=== PATIENT | male | born 1975 | race Caucasian/White ===

== ENCOUNTER 2017-01-24 17:08 | Inpatient (IN) | payer OTHER ==
[~2017-01-24] VITALS: Ht 180.3 cm; Wt 74.4 kg
[~2017-01-24 17:08] MED LIST: LSN5 PO; ZCR40 PO
[2017-01-24] MEDS ORDERED: ONDANSETRON INJ 2 MG/ML 2 ML VIAL IV STA (17:35)
[2017-01-24] MEDS ORDERED: SODIUM CHLORIDE 0.9% 1000ML 2,000 ML IV STA (17:35)
[2017-01-24] MEDS ORDERED: ERGO500011 PO (17:51)
--- NOTE | 2017-01-24 17:53 | EMERGENCY ROOM VISIT NOTE ---
History Report prepared by Jadeibdian: Tiffany Zavala Under the Supervision of: Rica GarciaO. First contact with patient: 17:18 Chief Complaint: VOMITING Stated Complaint: VOMITTING Nursing Triage Summary: vomiting started this am approx 0300. "many emesis" History of Present Illness The patient is a 41 year old male who presents to the Emergency Room with complaints of persistent vomiting that started around 1000 this morning. He admits to some abdominal discomfort from the vomiting but denies any diarrhea. He states he is still nauseous here in the ED and notes he vomited while in triage. He is a type 1 diabetic and has an Insulin pump in place. He does admit to some recent increased thirst but notes he is urinating normally. He admits to the chills but denies any fevers or cough or cold symptoms. The patient admits to a current headache, but states headaches are "common" for him. Source of History: patient Onset: 1000 this morning Position: other (global) Timing: other (persistent) Associated Symptoms: + chills, + headache, + abdominal pain, No fevers, No cough (cough or cold symptoms), No diarrhea Review of Systems See HPI for pertinent positives & negatives. A total of 10 systems reviewed and were otherwise negative. Past Medical & Surgical Medical Problems: (1) DM type 1 (diabetes mellitus, type 1) (2) Dyslipidemia (3) History of cochlear implant (4) HTN (hypertension) (5) Nausea & vomiting Family History FHx: Gibson's chorea FATHER Social History Smoking Status: Former Smoker Alcohol Use: none Drug Use: none Marital Status: in relationship Housing Status: lives with significant other Occupation Status: unemployed Current/Historical Medications Scheduled Atorvastatin (Atorvastatin Calcium), 40 MG PO DAILY Ergocalciferol (Vitamin D 05539 Unit), 50,000 UNITS PO WK Insulin Aspart (novoLOG INSULIN PUMP ), 1 EA N/A UD Lisinopril (Lisinopril), 20 MG PO DAILY Allergies Coded Allergies: No Known Allergies (Verified , NONE, 06/01/16) Physical Exam Vital Signs Date Time Temp Pulse Resp B/P (MAP) Pulse Ox O2 Delivery O2 Flow Rate FiO2 01/24/17 21:46 157/88 01/24/17 21:20 129 18 95 01/24/17 21:13 126 6/10/17 21:03 179/107 01/24/17 20:20 115 21 97 01/24/17 19:20 103 20 99 01/24/17 19:19 37.7 103 15 161/98 99 Room Air 01/24/17 18:23 97 14 151/100 97 Room Air 01/24/17 17:33 102 01/24/17 17:11 36.9 120 20 184/105 97 Room Air Physical Exam GENERAL: Patient is awake, alert, in no acute distress, patient is resting comfortably and showing no signs of anxiety EYES: The conjunctivae are clear. The pupils are round and reactive. EARS, NOSE, MOUTH AND THROAT: The nose is without any evidence of any deformity. Mucous membranes are dry, tongue is midline NECK: The neck is nontender and supple. RESPIRATORY: Normal respiratory effort is noted there is no evidence of wheezing rhonchi or rales CARDIOVASCULAR: Heart sounds are tachycardic but regular. No definite murmur appreciated. GASTROINTESTINAL: The abdomen is soft. Bowel sounds are present in all quadrants. Abdomen is nontender MUSCULOSKELETAL/EXTREMITIES: There is no evidence of gross deformity full range of motion is noted in the hips and shoulders SKIN: There is no obvious evidence of any rash. There are no petechiae, pallor or cyanosis noted. NEUROLOGIC: Patient is awake alert and oriented x3 strength is symmetric patellar reflexes are 2+ bilaterally Medical Decision & Procedures ER Provider Diagnostic Interpretation: X-ray results as stated below per interpretation by me and the radiologist. PA CHEST RADIOGRAPH AND UPRIGHT AND SUPINE AP RADIOGRAPHS OF THE ABDOMEN CLINICAL HISTORY: Abdominal pain. COMPARISON STUDY: CT of the abdomen and pelvis August 07, 2015 and chest radiograph June 01, 2016. FINDINGS: Lungs are clear. There is no pneumothorax or pleural effusion. Pulmonary vascularity is normal. Cardiac size is normal. Mediastinal contours are unremarkable. There is no free air. Bowel gas pattern is normal. A left pelvic calcification reflects a phlebolith. There is a moderate amount of stool within the colon. IMPRESSION: 1. No free air or evidence of bowel obstruction. 2. Moderate amount of stool within the colon. 3. No acute cardiopulmonary findings. Electronically signed by: Mohinder Donovan M.D. 01/24/2017 7:13 PM Laboratory Results Test 01/24/17 00:00 01/24/17 18:00 01/24/17 18:43 Urine Color YELLOW Urine Appearance CLEAR (CLEAR) Urine pH 5.5 (4.5-7.5) Urine Specific [place] 1.028 (1.000-1.030) Urine Protein 2+ (NEG) Urine Glucose (UA) 3+ (NEG) Urine Ketones 3+ (NEG) Urine Occult Blood TRACE (NEG) Urine Nitrite NEG (NEG) Urine Bilirubin NEG (NEG) Urine Urobilinogen NEG (NEG) Urine Leukocyte Esterase NEG (NEG) Urine WBC (Auto) 1-5 /hpf (0-5) Urine RBC (Auto) 0-4 /hpf (0-4) Urine Hyaline Casts (Auto) 1-5 /lpf (0-5) Urine Epithelial Cells (Auto) 5-10 /lpf (0-5) Urine Bacteria (Auto) NEG (NEG) Immature Granulocyte % (Auto) 0.2 % White Blood Count 14.43 K/uL (4.8-10.8) Red Blood Count 4.69 M/uL (4.7-6.1) Hemoglobin 15.4 g/dL (14.0-18.0) Hematocrit 42.5 % (42-52) Mean Corpuscular Volume 90.6 fL (80-100) Mean Corpuscular Hemoglobin 32.8 pg (25-34) Mean Corpuscular Hemoglobin Concent 36.2 g/dl (32-36) Platelet Count 289 K/uL (130-400) Mean Platelet Volume 9.6 fL (7.4-10.4) Neutrophils (%) (Auto) 93.6 % Lymphocytes (%) (Auto) 3.9 % Monocytes (%) (Auto) 2.1 % Eosinophils (%) (Auto) 0.1 % Basophils (%) (Auto) 0.1 % Neutrophils # (Auto) 13.51 K/uL (1.4-6.5) Lymphocytes # (Auto) 0.56 K/uL (1.2-3.4) Monocytes # (Auto) 0.31 K/uL (0.11-0.59) Eosinophils # (Auto) 0.01 K/uL (0-0.5) Basophils # (Auto) 0.01 K/uL (0-0.2) Immature Granulocyte # (Auto) 0.03 K/uL (0.00-0.02) Total Bilirubin 0.9 mg/dl (0.2-1) Direct Bilirubin 0.2 mg/dl (0-0.2) Aspartate Amino Transf (AST/SGOT) 24 U/L (15-37) Alanine Aminotransferase (ALT/SGPT) 40 U/L (12-78) Alkaline Phosphatase 57 U/L (45-117) Creatine Kinase MB 4.3 ng/ml (0.5-3.6) Creatine Kinase MB Ratio 1.4 (0-3.0) Troponin I < 0.015 ng/ml (0-0.045) Total Protein 7.9 gm/dl (6.4-8.2) Albumin 4.2 gm/dl (3.4-5.0) Lipase 92 U/L (73-393) Venous Blood pH 7.42 (7.36-7.41) Venous Blood Partial Pressure CO2 41 mmHg (38.0-50.0) Venous Blood Partial Pressure O2 29 mmHg Venous Blood HCO3 26 mmol/L Venous Blood Oxygen Saturation 64.3 % Venous Blood Base Excess 1.4 mmol/L Laboratory results per my review. Medications Administered Medications (Trade) Dose Ordered Sig/Soha Route Start Time Stop Time Status Last Admin Dose Admin Ondansetron HCl (Zofran Inj) 4 mg NOW STAT IV 01/24/17 17:35 01/24/17 17:37 DC 01/24/17 18:22 4 MG Sodium Chloride 2,000 ml @ 999 mls/hr Q2H1M STAT IV 01/24/17 17:35 01/24/17 19:35 DC 01/24/17 18:22 999 MLS/HR Sodium Chloride 1,000 ml @ 999 mls/hr Q1H1M STAT IV 01/24/17 19:32 01/24/17 20:32 DC 01/24/17 21:42 999 MLS/HR Sodium Chloride 1,000 ml @ 999 mls/hr Q1H1M STAT IV 01/24/17 21:04 01/24/17 22:04 DC 01/24/17 21:42 999 MLS/HR ECG Indication: vomiting Rate (beats per minute): 103 Rhythm: sinus tachycardia Findings: no ectopy, other (no acute ST segments) Change: no significant change (No significant change when compared to June 01, 2016) ED Course 1734: The patient was evaluated in room B5. A complete history and physical examination were performed. 1735: NSS 2000 ml @ 999 mls/hr IV, Zofran 4 mg IV. 1931: NSS 1000 ml @ 999 mls/hr IV. 1944: I reevaluated the patient. He is still a little nauseous but has not vomited since arrival. 2019: I reevaluated the patient. He is feeling a little better. 2049: I reevaluated the patient. He is still nauseous but has been able to drink some water. 2103: NSS 1000 ml @ 999 mls/hr IV. 2124: I reevaluated the patient. He is not feeling much better. I discussed my recommendation he remain in the hospital for further evaluation and management and he verbalized complete understanding and agreement. 2133: I discussed the patients case with Russ Guan. The patient will be further evaluated. Medical Decision Medication Reconciliation: I attest that I have personally reviewed the patient' s current medications list. Blood pressure screening: Patient was found to have an elevated blood pressure and was referred to their primary doctor for recheck and further treatment. Prior records/ancillary studies reviewed and summarized above. Nursing notes reviewed. The patient's history was concerning for weakness. Differential diagnosis: Etiologies such as metabolic, infection, hypo/hyperglycemia, electrolyte abnormalities, cardiac sources, intracerebral event, toxicologic, neurologic, as well as others were entertained. The patient is a 41-year-old male who presented to the emergency department for an evaluation of nausea vomiting. The patient has a history of diabetes and has had similar symptoms in the past. He's had problems with DKA in the past. The patient was treated with IV fluids and IV antiemetics. His condition continued to improve however he continued to have nausea and vomiting on reevaluation. The patient did not have significant anion gap. He was not acidotic. Because of ongoing symptoms I discussed his case with the on-call Russ hospitalist. They have agreed to evaluate the patient in the emergency department for further management and disposition. Consults Time Called: 2129 Consulting Physician: Russ Guan Returned Call: 2133 I discussed the patients case with Russ Guan. The patient will be further evaluated. Impression Primary Impression: Nausea Additional Impressions: Vomiting Dehydration Hyperglycemia Scribe Attestation The scribe's documentation has been prepared under my direction and personally reviewed by me in its entirety. I confirm that the note above accurately reflects all work, treatment, procedures, and medical decision making performed by me. Departure Information Dispostion Being Evaluated By Hospitalist Referrals Lilly Estrada M.D. (PCP) Patient Instructions My [facility] Problem Qualifiers
[2017-01-24 18:22] LABS: BASO % 0.1 %; BASO ABS # 0.01 K/uL (0-0.2); COMPLETE YES; EOS % 0.1 %; HEMATOCRIT 42.5 % (42-52); IG% 0.2 %; LYMPH % 3.9 %; LYMPH ABS # 0.56 K/uL (1.2-3.4); MEAN CELL VOLUME 90.6 fL (80-100); MEAN CORPUSCULAR HEMOGLOBIN 32.8 pg (25-34); MEAN CORPUSCULAR HGB CONC 36.2 g/dl (32-36); MEAN PLATELET VOLUME 9.6 fL (7.4-10.4); MONO % 2.1 %; NEUT % 93.6 %; PLATELET COUNT 289 K/uL (130-400); RED BLOOD COUNT 4.69 M/uL (4.7-6.1); WHITE BLOOD COUNT 14.43 K/uL (4.8-10.8)
[2017-01-24 18:41] LABS: ALT/SGPT 40 U/L (12-78); AST/SGOT 24 U/L (15-37); BLOOD UREA NITROGEN 20 mg/dl (7-18); BUN/CREATININE RATIO 16.6 (10-20); CALCIUM 9.4 mg/dl (8.5-10.1); CARBON DIOXIDE 26 mmol/L (21-32); CHLORIDE 103 mmol/L (98-107); GLUCOSE 271 mg/dl (70-99); MAGNESIUM 1.9 mg/dl (1.8-2.4); POTASSIUM 4.4 mmol/L (3.5-5.1); SODIUM 141 mmol/L (136-145)
[2017-01-24 18:43] LABS: ALKALINE PHOSPHATASE 57 U/L (45-117); BETA-HYDROXYBUTYRATE 15.05 mg/dL (0.2-2.81); CKMB/CK RATIO 1.4 (0-3.0)
[2017-01-24 18:54] LABS: VEN BLD GAS O2 SATURATION 64.3 %; VEN BLOOD GAS BASE EXCESS 1.4 mmol/L
--- NOTE | 2017-01-24 19:14 | DIAGNOSTIC IMAGING REPORT ---
PA CHEST RADIOGRAPH AND UPRIGHT AND SUPINE AP RADIOGRAPHS OF THE ABDOMEN CLINICAL HISTORY: Abdominal pain. COMPARISON STUDY: CT of the abdomen and pelvis August 07, 2015 and chest radiograph June 01, 2016. FINDINGS: Lungs are clear. There is no pneumothorax or pleural effusion. Pulmonary vascularity is normal. Cardiac size is normal. Mediastinal contours are unremarkable. There is no free air. Bowel gas pattern is normal. A left pelvic calcification reflects a phlebolith. There is a moderate amount of stool within the colon. IMPRESSION: 1. No free air or evidence of bowel obstruction. 2. Moderate amount of stool within the colon. 3. No acute cardiopulmonary findings. Electronically signed by: Mohinder Donovan M.D. 01/24/2017 7:13 PM Dictated Date/Time: 01/24/2017 7:11 PM
[2017-01-24] MEDS ORDERED: SODIUM CHLORIDE 0.9% 1000ML 1,000 ML IV STA ×2 (19:32→21:04)
[2017-01-24 20:29] LABS: URINE APPEARANCE CLEAR (CLEAR); URINE BILIRUBIN NEG (NEG); URINE COLOR YELLOW; URINE NITRITE NEG (NEG); URINE PH 5.5 (4.5-7.5); URINE SPECIFIC GRAVITY 1.028 (1.000-1.030); UROBILINOGEN NEG (NEG)
[2017-01-24 20:30] LABS: MANUAL MICROSCOPIC REQUIRED? NO; REVIEW REQ? NO
[2017-01-24] MEDS ORDERED: INSULIN IV INFUSION PROTOCOL STA (21:46)
--- NOTE | 2017-01-24 21:54 | History and Physical ---
History & Physical Date & Time of Service: Jan 24, 2017 at 21:54 Chief Complaint: Vomitting Primary Care Physician: Lilly Estrada M.D. History of Present Illness Source: patient This is a 41 yo M with medical hx of Type 1 DM on insulin pump , HTN , hyperlipidemia , Vit D deficiency presented to ED with complain intractable nausea /vomiting started form 10am this morning , pt mentions he was feeling OK yesterday , this AM his insulin pump reading shows BSG of 66 he had breakfast , few minutes later developed nausea and vomited his meals had ongoing vomiting multiple times through out the day complains of pain on lower abdomen and epigastric area worsened with vomiting mentions of having coughing episode with vomiting no fever or chills , no sick contact denies of any Chest pain or SOB had bowel movement this AM -was normal no concern for insulin pump malfunction in the ED for was found to be tachycardic , febrile WBC 14 K BSG > 260 , elevated beta hydroxybutyrate level mild elevation of anion gap , normal H co3 level of 26 Past Medical/Surgical History Medical Problems: (1) DM type 1 (diabetes mellitus, type 1) Status: Chronic (2) Dyslipidemia Status: Chronic (3) History of cochlear implant Status: Chronic (4) HTN (hypertension) Status: Chronic Family History FHx: Hector's chorea FATHER Social History Smoking Status: Former Smoker Drug Use: none Marital Status: in relationship Occupational Status: unemployed Immunizations History of Influenza Vaccine: Yes Influenza Vaccine Date: May 08, 2015 History of Tetanus Vaccine?: Yes Tetanus Immunization Date: Aug 28, 2009 History of Pneumococcal: Yes Pneumococcal Date: Jan 25, 2015 History of Hepatitis B Vaccine: Yes Hepatitis Immunization Date: Jun 06, 2014 Multi-Drug Resistant Organisms History of MDRO: No Allergies Coded Allergies: No Known Allergies (Verified , NONE, 06/01/16) Home Medications Scheduled Atorvastatin (Atorvastatin Calcium), 40 MG PO DAILY Ergocalciferol (Vitamin D 85789 Unit), 50,000 UNITS PO WK Insulin Aspart (novoLOG INSULIN PUMP ), 1 EA N/A UD Lisinopril (Lisinopril), 20 MG PO DAILY Review of Systems Constitutional: + weakness, + fatigue Respiratory: + cough (with vomiting ) Cardiovascular: No chest pain, No orthopnea, No PND, No edema, No claudication , No palpitations, No problem reported Abdomen: + pain (abdominal pain ), + nausea, + vomiting Musculoskeletal: No joint pain, No muscle pain, No swelling, No calf pain, No problem reported Genitourinary - Male: No hematuria, No dysuria, No urinary frequency, No urinary urgency, No urinary hesitancy, No urinary retention, No urinary incontinence, No penile discharge, No lesions, No impotence, No problem reported Neurologic: + weakness Endocrine: + fatigue, + excessive thirst Physical Exam Vital Signs Date Time Temp Pulse Resp B/P (MAP) Pulse Ox O2 Delivery O2 Flow Rate FiO2 01/24/17 21:13 126 01/24/17 19:19 37.7 103 15 161/98 99 Room Air 01/24/17 18:23 97 14 151/100 97 Room Air 01/24/17 17:33 102 01/24/17 17:11 36.9 120 20 184/105 97 Room Air General Appearance: no apparent distress Head: normocephalic, atraumatic Eyes: sclerae normal Respiratory/Chest: lungs clear, normal breath sounds, no respiratory distress Cardiovascular: regular rate, rhythm Abdomen/GI: normal bowel sounds, soft, + pertinent finding (epigastric tenderness ) Extremities/Musculoskelatal: no calf tenderness, no pedal edema Neurologic/Psych: alert, normal mood/affect, oriented x 3 Skin: normal color, warm/dry, no rash Lymphatic: no adenopathy Diagnostics Laboratory Results Results Past 24 Hours Test 01/24/17 00:00 01/24/17 17:31 01/24/17 18:00 01/24/17 18:43 Range/Units Urine Color YELLOW Urine Appearance CLEAR CLEAR Urine pH 5.5 4.5-7.5 Urine Specific [place] 1.028 1.000-1.030 Urine Protein 2+ NEG Urine Glucose (UA) 3+ NEG Urine Ketones 3+ NEG Urine Occult Blood TRACE NEG Urine Nitrite NEG NEG Urine Bilirubin NEG NEG Urine Urobilinogen NEG NEG Urine Leukocyte Esterase NEG NEG Urine WBC (Auto) 1-5 0-5 /hpf Urine RBC (Auto) 0-4 0-4 /hpf Urine Hyaline Casts (Auto) 1-5 0-5 /lpf Urine Epithelial Cells (Auto) 5-10 0-5 /lpf Urine Bacteria (Auto) NEG NEG Bedside Glucose 260 70-99 mg/dl White Blood Count 14.43 4.8-10.8 K/uL Red Blood Count 4.69 4.7-6.1 M/uL Hemoglobin 15.4 14.0-18.0 g/dL Hematocrit 42.5 42-52 % Mean Corpuscular Volume 90.6 80-100 fL Mean Corpuscular Hemoglobin 32.8 25-34 pg Mean Corpuscular Hemoglobin Concent 36.2 32-36 g/dl Platelet Count 289 130-400 K/uL Mean Platelet Volume 9.6 7.4-10.4 fL Neutrophils (%) (Auto) 93.6 % Lymphocytes (%) (Auto) 3.9 % Monocytes (%) (Auto) 2.1 % Eosinophils (%) (Auto) 0.1 % Basophils (%) (Auto) 0.1 % Neutrophils # (Auto) 13.51 1.4-6.5 K/uL Lymphocytes # (Auto) 0.56 1.2-3.4 K/uL Monocytes # (Auto) 0.31 0.11-0.59 K/uL Eosinophils # (Auto) 0.01 0-0.5 K/uL Basophils # (Auto) 0.01 0-0.2 K/uL RDW Standard Deviation 44.0 36.4-46.3 fL RDW Coefficient of Variation 13.5 11.5-14.5 % Immature Granulocyte % (Auto) 0.2 % Immature Granulocyte # (Auto) 0.03 0.00-0.02 K/uL Sodium Level 141 136-145 mmol/L Potassium Level 4.4 3.5-5.1 mmol/L Chloride Level 103 98-107 mmol/L Carbon Dioxide Level 26 21-32 mmol/L Anion Gap 12.0 3-11 mmol/L Blood Urea Nitrogen 20 7-18 mg/dl Creatinine 1.20 0.60-1.40 mg/dl Est Creatinine Clear Calc Drug Dose 76.9 ml/min Estimated GFR () 87.8 Estimated GFR (Non- 75.7 BUN/Creatinine Ratio 16.6 10-20 Random Glucose 271 70-99 mg/dl Calcium Level 9.4 8.5-10.1 mg/dl Magnesium Level 1.9 1.8-2.4 mg/dl Total Bilirubin 0.9 0.2-1 mg/dl Direct Bilirubin 0.2 0-0.2 mg/dl Aspartate Amino Transf (AST/SGOT) 24 15-37 U/L Alanine Aminotransferase (ALT/SGPT) 40 12-78 U/L Alkaline Phosphatase 57 45-117 U/L Total Creatine Kinase 316 39-308 U/L Creatine Kinase MB 4.3 0.5-3.6 ng/ml Creatine Kinase MB Ratio 1.4 0-3.0 Troponin I < 0.015 0-0.045 ng/ml Total Protein 7.9 6.4-8.2 gm/dl Albumin 4.2 3.4-5.0 gm/dl Lipase 92 73-393 U/L Beta-Hydroxybutyric Acid 15.05 0.2-2.81 mg/dL Venous Blood pH 7.42 7.36-7.41 Venous Blood Partial Pressure CO2 41 38.0-50.0 mmHg Venous Blood Partial Pressure O2 29 mmHg Venous Blood HCO3 26 mmol/L Venous Blood Oxygen Saturation 64.3 % Venous Blood Base Excess 1.4 mmol/L Test 01/24/17 21:48 Range/Units Microbiology Results 01/24/17 Blood Culture, Diana Batch Pending 01/24/17 Blood Culture, Diana Batch Pending Diagnostic Radiology PA CHEST RADIOGRAPH AND UPRIGHT AND SUPINE AP RADIOGRAPHS OF THE ABDOMEN CLINICAL HISTORY: Abdominal pain. COMPARISON STUDY: CT of the abdomen and pelvis August 07, 2015 and chest radiograph June 01, 2016. FINDINGS: Lungs are clear. There is no pneumothorax or pleural effusion. Pulmonary vascularity is normal. Cardiac size is normal. Mediastinal contours are unremarkable. There is no free air. Bowel gas pattern is normal. A left pelvic calcification reflects a phlebolith. There is a moderate amount of stool within the colon. IMPRESSION: 1. No free air or evidence of bowel obstruction. 2. Moderate amount of stool within the colon. 3. No acute cardiopulmonary findings. Impression Assessment and Plan TYPE 1 DM /HYPERGLYCEMIA : presented with intractable nausea /vomiting , no evidence of insulin pump malfunction will start pt in IV insulin gtt pt is asked to hold insulin pump while in hospital IV fluids follow beta hydroxybutyrate level q 8hrs -till normalizes follows with Endocrinology Dr Reina last Hb A1 C 7.8 on 12/29/16 NAUSEA /VOMITING /ABDOMINAL PAIN possible due to above Xray of abdomen no acute finding ordered for IV fluids , hyperglycemia management as above clear liquid diet advance to Type 1 diabetic diet as tolerated ROBINA : Cr elevated 1.2 ( last cr 0.9 on 12/29/16 ) due to GI loss IVF fluid hold ZACHARY follow PRP TACHYCARDIAC : sinus tach due to dehydration IVF monitor in tele MILD LEUKOCYTOSIS : WBC 14 k with fever r/o infection causing hyperglycemia blood and urine culture ordered Cxray no evidence of infection HTN : BP stable will hold lisinopril due to dehydration , ROBINA HYPERLIPIDEMIA : hold statin due to mild elevation of CPK pt denies of any muscle aches or pain FULL CODE DVT PROPHYLAXIS low risk scd and teds ambulate DISPOSITION : Discharge home when medically stable medicine follow up with Dr Lilly Estrada Endocrinology follow up with Dr Reina Level of Care Telemetry Resuscitation Status FULL RESUSCITATION VTE Prophylaxis VTE Risk Assessment Done? Y/N: Yes Risk Level: Low Given or contraindicated: T.EDevang Stockings, SCD's Additional Copies To Lilly Estrada M.D. Kaviani, [place], M.D.
[2017-01-24] MEDS ORDERED: POLYETHYLENE (MIRALAX) 17 GM PACK PO PRN (22:00)
[2017-01-24] MEDS ORDERED: DKA GOAL RANGE 150-250 mg/dl 1 EA ONE (22:00)
[2017-01-24] MEDS ORDERED: ONDANSETRON INJ 2 MG/ML 2 ML VIAL IV PRN (22:00)
[2017-01-24] MEDS ORDERED: ZOLPIDEM TARTRATE 5 MG TAB PO PRN (22:00)
[2017-01-24] MEDS ORDERED: ACETAMINOPHEN 325 MG TAB PO PRN (22:00)
[2017-01-24] MEDS ORDERED: DC ALL PREVIOUSLY ORDERED DIABETES MEDS ONE (22:00)
[2017-01-24] MEDS ORDERED: ALUMINUM/MAGNESIUM/SIMETH (MAALOX MAX) 30 ML UDC PO PRN (22:00)
[2017-01-24] MEDS ORDERED: SEVERE STRESS LEVEL ONE (22:00)
[2017-01-24] MEDS ORDERED: PHARMACY GLYCEMIC MGMT CONSULT PRN (23:45)
[2017-01-25] VITALS (7 sets, daily range): BP systolic 141–169; BP diastolic 80–99; PULSE 72–109; TEMP 36.6–37.2; O2SAT 96–98; Ht 180.3 cm; Wt 74.4 kg
[2017-01-25] MEDS ORDERED: INSULIN HUMAN REGULAR IV BOLUS 2.5 UNIT in SYRINGE 0 ML IV SCH
[2017-01-25] MEDS: INSULIN REGULAR 250 UNITS in SODIUM CHLORIDE 0.9% 250ML 250 ML IV SCH ×7 (00:20→18:13)
[2017-01-25] MEDS: SODIUM CHLORIDE 0.9% 1000ML 1,000 ML IV SCH ×3 (01:37→13:19)
[2017-01-25 07:06] LABS: HEMATOCRIT 36.5 % (42-52); MEAN CELL VOLUME 90.6 fL (80-100); MEAN CORPUSCULAR HGB CONC 34.2 g/dl (32-36); MEAN PLATELET VOLUME 9.2 fL (7.4-10.4); PLATELET COUNT 261 K/uL (130-400); RED BLOOD COUNT 4.03 M/uL (4.7-6.1); WHITE BLOOD COUNT 11.02 K/uL (4.8-10.8)
[2017-01-25 07:33] LABS: BETA-HYDROXYBUTYRATE 3.58 mg/dL (0.2-2.81); BUN/CREATININE RATIO 18.8 (10-20); CALCIUM 8.5 mg/dl (8.5-10.1); CHOLESTEROL/HDL RATIO 2.2; CREATININE 0.95 mg/dl (0.60-1.40)
[2017-01-25] MEDS: INSULIN ASPART 100 UNITS/ML 3 ML PEN SC SCH ×2 (07:37→12:01)
[2017-01-25] MEDS ORDERED: DEXTROSE 50% 50 ML SYR ONE (07:44)
[2017-01-25] MEDS ORDERED: INSULIN PROTOCOL GOAL RANGE ONE (09:00)
[2017-01-25] MEDS ORDERED: LISINOPRIL 20 MG TAB PO SCH (09:00)
[2017-01-25] MEDS ORDERED: PANTOprazole SOD 40 MG TAB PO SCH (09:00)
--- NOTE | 2017-01-25 11:07 | Progress Note ---
Medicine Progress Note Date & Time of Visit: Jan 25, 2017 at 10:43. Subjective Pt was seen and examined Lying in bed with no distress Pt said that he feels fine now he tolerates clear liquid diet and would like his diet to advance Denies any abdominal pain, chest pain, palpitation, dizziness, sob, N/V Objective Last 8 Hrs Date Time Temp Pulse Resp B/P (MAP) Pulse Ox O2 Delivery O2 Flow Rate FiO2 01/25/17 08:19 36.7 85 20 152/87 (108) 97 01/25/17 08:00 Room Air 01/25/17 04:00 Room Air 01/25/17 04:00 36.7 98 20 141/80 (100) 98 Room Air Physical Exam: General- No acute distress Head- atraumatic Eyes- PERRL, EOMI ENT- oropharynx clear Neck- supple, no JVD Lungs- clear to auscultation Heart- regular rhythm; no murmur Abdomen- normal bowel sounds, soft, nontender Extremities- no pretibial edema, no calf tenderness Neuro- alert, oriented x 3; PERRL, EOMI; no facial palsy Skin- warm & dry Laboratory Results: Last 24 Hours Test 01/24/17 17:31 01/24/17 18:00 01/24/17 18:43 01/24/17 22:55 Bedside Glucose 260 mg/dl White Blood Count 14.43 K/uL Red Blood Count 4.69 M/uL Hemoglobin 15.4 g/dL Hematocrit 42.5 % Mean Corpuscular Volume 90.6 fL Mean Corpuscular Hemoglobin 32.8 pg Mean Corpuscular Hemoglobin Concent 36.2 g/dl Platelet Count 289 K/uL Mean Platelet Volume 9.6 fL Neutrophils (%) (Auto) 93.6 % Lymphocytes (%) (Auto) 3.9 % Monocytes (%) (Auto) 2.1 % Eosinophils (%) (Auto) 0.1 % Basophils (%) (Auto) 0.1 % Neutrophils # (Auto) 13.51 K/uL Lymphocytes # (Auto) 0.56 K/uL Monocytes # (Auto) 0.31 K/uL Eosinophils # (Auto) 0.01 K/uL Basophils # (Auto) 0.01 K/uL RDW Standard Deviation 44.0 fL RDW Coefficient of Variation 13.5 % Immature Granulocyte % (Auto) 0.2 % Immature Granulocyte # (Auto) 0.03 K/uL Sodium Level 141 mmol/L Potassium Level 4.4 mmol/L Chloride Level 103 mmol/L Carbon Dioxide Level 26 mmol/L Anion Gap 12.0 mmol/L Blood Urea Nitrogen 20 mg/dl Creatinine 1.20 mg/dl Est Creatinine Clear Calc Drug Dose 76.9 ml/min Estimated GFR () 87.8 Estimated GFR (Non- 75.7 BUN/Creatinine Ratio 16.6 Random Glucose 271 mg/dl Calcium Level 9.4 mg/dl Magnesium Level 1.9 mg/dl Total Bilirubin 0.9 mg/dl Direct Bilirubin 0.2 mg/dl Aspartate Amino Transf (AST/SGOT) 24 U/L Alanine Aminotransferase (ALT/SGPT) 40 U/L Alkaline Phosphatase 57 U/L Total Creatine Kinase 316 U/L Creatine Kinase MB 4.3 ng/ml Creatine Kinase MB Ratio 1.4 Troponin I < 0.015 ng/ml Total Protein 7.9 gm/dl Albumin 4.2 gm/dl Lipase 92 U/L Beta-Hydroxybutyric Acid 15.05 mg/dL Venous Blood pH 7.42 Venous Blood Partial Pressure CO2 41 mmHg Venous Blood Partial Pressure O2 29 mmHg Venous Blood HCO3 26 mmol/L Venous Blood Oxygen Saturation 64.3 % Venous Blood Base Excess 1.4 mmol/L Lactic Acid Level 1.7 mmol/L Test 01/25/17 01:24 01/25/17 02:23 01/25/17 03:26 01/25/17 04:17 Bedside Glucose 227 mg/dl 202 mg/dl 194 mg/dl 179 mg/dl Test 01/25/17 06:05 01/25/17 06:35 01/25/17 07:38 01/25/17 08:07 White Blood Count 11.02 K/uL Red Blood Count 4.03 M/uL Hemoglobin 12.5 g/dL Hematocrit 36.5 % Mean Corpuscular Volume 90.6 fL Mean Corpuscular Hemoglobin 31.0 pg Mean Corpuscular Hemoglobin Concent 34.2 g/dl RDW Standard Deviation 44.5 fL RDW Coefficient of Variation 13.5 % Platelet Count 261 K/uL Mean Platelet Volume 9.2 fL Sodium Level 145 mmol/L Potassium Level 4.0 mmol/L Chloride Level 112 mmol/L Carbon Dioxide Level 24 mmol/L Anion Gap 9.0 mmol/L Blood Urea Nitrogen 18 mg/dl Creatinine 0.95 mg/dl Est Creatinine Clear Calc Drug Dose 109.9 ml/min Estimated GFR () 116.4 Estimated GFR (Non- 100.4 BUN/Creatinine Ratio 18.8 Random Glucose 139 mg/dl Calcium Level 8.5 mg/dl Magnesium Level 2.0 mg/dl Total Creatine Kinase 341 U/L Triglycerides Level 69 mg/dl Cholesterol Level 120 mg/dl HDL Cholesterol 55 mg/dl LDL Cholesterol, Calculated 51 mg/dl VLDL Cholesterol, Calculated 14 mg/dl Cholesterol/HDL Ratio 2.2 Beta-Hydroxybutyric Acid 3.58 mg/dL Bedside Glucose 130 mg/dl 113 mg/dl 176 mg/dl Test 01/25/17 09:09 01/25/17 10:01 Bedside Glucose 273 mg/dl 268 mg/dl Date/Time Source Procedure Growth Status 01/24/17 22:55 Blood Blood Culture Pending Received 01/24/17 22:50 Blood Blood Culture Pending Received Assessment & Plan TYPE 1 DM /HYPERGLYCEMIA : presented with intractable nausea /vomiting , no evidence of insulin pump malfunction AG on admission was 12 AG is normal today On Insulin drip Continue IV fluid beta hydroxybutyrate level trending down Pharmacy consulted for glycemic control follows with Endocrinology Dr Reina last Hb A1 C 7.8 on 12/29/16 NAUSEA /VOMITING /ABDOMINAL PAIN possible related to gastroenteritis Xray of abdomen showed no acute finding Continue IVF Tolerated clear liquid will advance diet as tolerated resolved ROBINA : Cr on admission 1.2 ( last cr 0.9 on 12/29/16 ) due to GI loss creatine 0.9 today Continue IVF fluid continue to hold ZACHARY I Stable TACHYCARDIAC sinus tach on EKG Possible due to dehydration No arrhythmia seen on telemetry HR improves Continue IVF Stable MILD LEUKOCYTOSIS : On admission WBC 14 k with low grade fever Possible reactive has been afebrile r/o infection causing hyperglycemia WBC trending down blood and urine culture pending CXR negative Need to be afebrile for 24hrs to be able to discharge home. anticipate to discharge tonight after 8 pm if afebrile stable HTN : BP elevated lisinopril on hold due to dehydration will add prn hydralazine HYPERLIPIDEMIA : hold statin due to mild elevation of CPK pt denies of any muscle aches or pain Continue IVF Monitor CPK CODE STATUS FULL CODE DVT PROPHYLAXIS low risk scd and teds ambulate DISPOSITION : Discharge home when medically stable medicine follow up with Dr Lilly Estrada on 01/29 @ 2:05 pm Endocrinology follow up with Dr Reina Current Inpatient Medications: Current Inpatient Medications Medications (Trade) Dose Ordered Sig/Soha Route Start Time Stop Time Status Last Admin Dose Admin Insulin Aspart (novoLOG ASPART) SLIDING SCALE PCHS SC 01/25/17 09:00 02/24/17 08:59 Miscellaneous Information (Consult Glycemic Management Pharmacy) 1 ea UD PRN N/A 01/24/17 23:45 02/23/17 23:44 Sodium Chloride 1,000 ml @ 125 mls/hr Q8H IV 01/24/17 22:00 02/23/17 21:59 01/25/17 05:59 125 MLS/HR Acetaminophen (Tylenol Tab) 650 mg Q4H PRN PO 01/24/17 22:00 02/23/17 21:59 Al Hydrox/Mg Hydrox/Simethicone (Maalox Max Susp) 15 ml Q4H PRN PO 01/24/17 22:00 02/23/17 21:59 Zolpidem Tartrate (Ambien Tab) 5 mg HSZ PRN PO 01/24/17 22:00 02/23/17 21:59 Ondansetron HCl (Zofran Inj) 4 mg Q6H PRN IV 01/24/17 22:00 02/23/17 21:59 01/24/17 22:03 4 MG Polyethylene (Miralax Powder Packet) 17 gm DAILY PRN PO 01/24/17 22:00 02/23/17 21:59 Pantoprazole Sodium (Protonix Tab) 40 mg QAM PO 01/25/17 09:00 02/24/17 08:59 01/25/17 07:37 40 MG Insulin Human Regular 250 units/ Sodium Chloride 252.5 ml @ 0 mls/hr DAILY@1130 IV 01/25/17 00:00 02/24/17 00:01 01/25/17 09:16 1.3 MLS/HR
[2017-01-25] MEDS ORDERED: LANTUS PER UNIT CHARGE SQ ONE (15:00)
--- NOTE | 2017-01-25 15:04 | Pharmacy Progress Note ---
Glycemic Control Intl Consult Date of Service Jan 25, 2017. Scope Glycemic Pharmacist consulted by Dr Magana on 01/25/17 for glycemic control and to write orders per [facility] inpatient glycemic control protocol Objective Weight (Kilograms): 74.400 Accuchecks BSG (last 24hrs): Test 01/24/17 17:31 01/24/17 18:00 01/25/17 01:24 01/25/17 02:23 Bedside Glucose 260 mg/dl (70-99) 227 mg/dl (70-99) 202 mg/dl (70-99) Random Glucose 271 mg/dl (70-99) Test 01/25/17 03:26 01/25/17 04:17 01/25/17 06:05 01/25/17 06:35 Bedside Glucose 194 mg/dl (70-99) 179 mg/dl (70-99) 130 mg/dl (70-99) Random Glucose 139 mg/dl (70-99) Test 01/25/17 07:38 01/25/17 08:07 01/25/17 09:09 01/25/17 10:01 Bedside Glucose 113 mg/dl (70-99) 176 mg/dl (70-99) 273 mg/dl (70-99) 268 mg/dl (70-99) Test 01/25/17 11:13 01/25/17 11:55 Bedside Glucose 236 mg/dl (70-99) 228 mg/dl (70-99) Laboratory Data (last 24hrs) Test 01/24/17 18:00 01/25/17 06:05 Anion Gap 12.0 mmol/L 9.0 mmol/L BUN/Creatinine Ratio 16.6 18.8 Blood Urea Nitrogen 20 mg/dl 18 mg/dl Creatinine 1.20 mg/dl 0.95 mg/dl Potassium Level 4.4 mmol/L 4.0 mmol/L Sodium Level 141 mmol/L 145 mmol/L White Blood Count 14.43 K/uL 11.02 K/uL Red Blood Count 4.69 M/uL Hemoglobin 15.4 g/dL Hematocrit 42.5 % Mean Corpuscular Volume 90.6 fL Mean Corpuscular Hemoglobin 32.8 pg Mean Corpuscular Hemoglobin Concent 36.2 g/dl Platelet Count 289 K/uL Mean Platelet Volume 9.6 fL Neutrophils (%) (Auto) 93.6 % Lymphocytes (%) (Auto) 3.9 % Monocytes (%) (Auto) 2.1 % Eosinophils (%) (Auto) 0.1 % Basophils (%) (Auto) 0.1 % Neutrophils # (Auto) 13.51 K/uL Lymphocytes # (Auto) 0.56 K/uL Monocytes # (Auto) 0.31 K/uL Eosinophils # (Auto) 0.01 K/uL Basophils # (Auto) 0.01 K/uL HbA1c 7.8% 12/29/16 Recent Pertinent Medications Outpatient Anti-diabetic Regimen: * Novolog pump: * Basal rates: 6357-1121 0.8units/hr; 9861-7958 0.75units/hr; 4671-4105 0.8units/hr; total basal = 18.8 units/day * Target range: 110-140mg/dL * CF: 40mg/dL/unit * Carb ratio: 1 unit per 8.5gm CHO's * A1c = 7.8 % 12/29/16 The patient is currently receiving: * IV insulin infusion per severe stress protocol; current goal 140-180mg/dL Risk Factors for Insulin Resistance: * Diet: ordered Clear Liquids Assessment & Plan ASSESSMENT: 01/25/17 * Type 1 diabetic admitted with c/o nausea/vomiting and abdominal pain * He usually manages his DM with his insulin pump * He initially had a mild elevation in anion gap and BOHB, however was not acidotic based upon pH or Bicarb * He has been managed with IV insulin drip since admission. He does have his insulin pump with him but he does not have supplies for it, nor does he have a way to obtain his supplies while hospitalized. * Given his labs have improved, AG 9, Bicarb 24 and pt no longer c/o NV or abd pain I feel it is OK to transition him over to a SQ basal/bolus regimen at this time. The patient is agreeable to this. Will base doses upon those delivered by his insulin pump. Will overlap the first dose of Lantus with the insulin drip for 4 hrs. * The patient knows that if he is discharged this evening or early tomorrow he will have to check his BSGs more frequently with the Lantus on board and it may be advisable to suspend his basal rate or reduce the basal rate until mid-day tomorrow. PLAN FOR INPATIENT GLYCEMIC CONTROL: * Lantus 18 units SQ x 1 now * D/C the insulin drip 4 hrs after 1st Lantus dose given * Novolog SQ ACHS and at 0200 * Correction factor 40 mg/dl/unit (when insulin drip off) * Carb ratio 1 unit per 9 grams CHO consumed * Goal range Low 110 mg/dL - High 150 mg/dL PLAN FOR DISCHARGE: * Resume insulin pump upon discharge. * If discharged on the evening of 01/25/17, suspend the basal insulin rate until the AM of 01/26 and check BSGs more frequently. May resume basal rate sooner if BSGs are running high (>200) however you may want to restart at 50% your usual basal rate. I would expect you to require your full basal rate by noon on . Please be sure that your basal rate is set to your normal/usual dose at noon on 01/26. * If discharge in the AM of 01/26/17, resume insulin pump at your usual settings once home. Be sure to check your BSGs more frequently as you may still have some residual Lantus insulin on board. Again I think the effects of Lantus should be minimal at noon time on 01/26 and you should be able to use your normal /usual settings at that time of day. * Please note that the plan above was derived based on current level of insulin resistance and hospital stress. These recommendations are appropriate for inpatient admission only. Plan of care upon discharge will need to be reassessed to avoid potential outpatient hypo/hyperglycemia. Thank you.
[2017-01-25] MEDS ORDERED: INSULIN ASPART 100 UNITS/ML 3 ML PEN SC SCH ×2 (16:30→21:00)
[2017-01-25] MEDS ORDERED: [UNRECOGNIZED DRUG - REMARK] ONE (19:00)
--- NOTE | 2017-01-25 19:30 | Discharge Instructions ---
Discharge Instructions Date of Service Jan 25, 2017. Admission Reason for Admission: Dm Type 1, Nausea And Vomiting Discharge Discharge Diagnosis / Problem: NAUSEA /VOMITING /ABDOMINAL PAIN, MILD LEUKOCYTOSIS, DIABETES TYPE 1 Discharge Goals Goal(s): Decrease discomfort, Improve function, Improve disease control Activity Recommendations Activity Limitations: resume your previous activity . Instructions / Follow-Up Instructions / Follow-Up Follow up appointment with Dr. Lilly Estrada on 01/29 @ 2:05 PM Follow up with your endocrinology Increase fluid intake Monitor blood sugar f Current Hospital Diet Patient's current hospital diet: Diabetes Type 2 Diet Discharge Diet Recommended Diet: Diabetes Type 1 Diet Pending Studies Studies pending at discharge: no List of pending studies: urine cx and blood cx Laboratory Results Lipid Panel Test 01/25/17 06:05 Range/Units Triglycerides Level 69 0-150 mg/dl Cholesterol Level 120 0-200 mg/dl HDL Cholesterol 55 mg/dl Cholesterol/HDL Ratio 2.2 LDL Cholesterol, Calculated 51 mg/dl Medical Emergencies . Who to Call and When: Medical Emergencies: If at any time you feel your situation is an emergency, please call 911 immediately. . Non-Emergent Contact Non-Emergency issues call your: Primary Care Provider Call Non-Emergent contact if: you have a fever, you have any medication questions . . "Provider Documentation" section prepared by Jaimie Day. . VTE Core Measure Inpt VTE Proph given/why not?: Mohsen Rae, SCD's
[2017-01-26] MEDS ORDERED: INSULIN ASPART 100 UNITS/ML 3 ML PEN SC ONE (02:00)
--- NOTE | 2017-02-01 13:13 | Discharge Summary ---
Discharge Summary Date of Service Feb 01, 2017. Discharge Summary Admission Date: Jan 24, 2017 at 21:46 Discharge Date: Jan 25, 2017 Discharge Disposition: Home Principal Diagnosis: NAUSEA /VOMITING /ABDOMINAL PAIN Secondary Diagnoses/Problems: MILD LEUKOCYTOSIS DIABETES TYPE 1 ROBINA Tachycardia Hyperlipidemia HTN Procedures: [~ rep ct add3]] PA CHEST RADIOGRAPH AND UPRIGHT AND SUPINE AP RADIOGRAPHS OF THE ABDOMEN CLINICAL HISTORY: Abdominal pain. COMPARISON STUDY: CT of the abdomen and pelvis August 07, 2015 and chest radiograph June 01, 2016. FINDINGS: Lungs are clear. There is no pneumothorax or pleural effusion. Pulmonary vascularity is normal. Cardiac size is normal. Mediastinal contours are unremarkable. There is no free air. Bowel gas pattern is normal. A left pelvic calcification reflects a phlebolith. There is a moderate amount of stool within the colon. IMPRESSION: 1. No free air or evidence of bowel obstruction. 2. Moderate amount of stool within the colon. 3. No acute cardiopulmonary findings. Electronically signed by: Mohinder Donovan M.D. 01/24/2017 7:13 PM Dictated Date/Time: 01/24/2017 7:11 PM Medication Reconciliation Continued Medications: Atorvastatin (Atorvastatin Calcium) 40 Mg Tab 40 MG PO DAILY, #30 Ergocalciferol (Vitamin D 19023 Unit) 50,000 Unit Cap 65895 UNITS PO WK, #5 TAKES ON SUN Insulin Aspart (novoLOG INSULIN PUMP ) 1 Ea Inj 1 EA N/A UD, EA Lisinopril (Lisinopril) 20 Mg Tab 20 MG PO DAILY, #30 Admission Information HPI (per Admitting provider): This is a 41 yo M with medical hx of Type 1 DM on insulin pump , HTN , hyperlipidemia , Vit D deficiency presented to ED with complain intractable nausea /vomiting started form 10am this morning , pt mentions he was feeling OK yesterday , this AM his insulin pump reading shows BSG of 66 he had breakfast , few minutes later developed nausea and vomited his meals had ongoing vomiting multiple times through out the day complains of pain on lower abdomen and epigastric area worsened with vomiting mentions of having coughing episode with vomiting no fever or chills , no sick contact denies of any Chest pain or SOB had bowel movement this AM -was normal no concern for insulin pump malfunction in the ED for was found to be tachycardic , febrile WBC 14 K BSG > 260 , elevated beta hydroxybutyrate level mild elevation of anion gap , normal H co3 level of 26 Physical Exam (per Admitting): General Appearance: no apparent distress Head: normocephalic, atraumatic Eyes: sclerae normal Respiratory/Chest: lungs clear, normal breath sounds, no respiratory distress Cardiovascular: regular rate, rhythm Abdomen/GI: normal bowel sounds, soft, + pertinent finding (epigastric tenderness ) Extremities/Musculoskelatal: no calf tenderness, no pedal edema Neurologic/Psych: alert, normal mood/affect, oriented x 3 Skin: normal color, warm/dry, no rash Lymphatic: no adenopathy Hospital Course TYPE 1 DM /HYPERGLYCEMIA : presented with intractable nausea /vomiting , no evidence of insulin pump malfunction AG on admission was 12 AG is normal today On Insulin drip Continue IV fluid beta hydroxybutyrate level trending down Pharmacy consulted for glycemic control follows with Endocrinology Dr Reina last Hb A1 C 7.8 on 12/29/16 NAUSEA /VOMITING /ABDOMINAL PAIN possible related to gastroenteritis Xray of abdomen showed no acute finding Continue IVF Tolerated clear liquid will advance diet as tolerated resolved ROBINA : Cr on admission 1.2 ( last cr 0.9 on 12/29/16 ) due to GI loss creatine 0.9 today Continue IVF fluid continue to hold ZACHARY I Stable TACHYCARDIA sinus tach on EKG Possible due to dehydration No arrhythmia seen on telemetry HR improves Continue IVF Stable MILD LEUKOCYTOSIS : On admission WBC 14 k with low grade fever Possible reactive has been afebrile r/o infection causing hyperglycemia WBC trending down blood and urine culture pending CXR negative Need to be afebrile for 24hrs to be able to discharge home. anticipate to discharge tonight after 8 pm if afebrile stable HTN : BP elevated lisinopril on hold due to dehydration will add prn hydralazine HYPERLIPIDEMIA : hold statin due to mild elevation of CPK pt denies of any muscle aches or pain Continue IVF Monitor CPK CODE STATUS FULL CODE DVT PROPHYLAXIS low risk scd and teds ambulate DISPOSITION : Discharge home when medically stable medicine follow up with Dr Lilly Estrada on 01/29 @ 2:05 pm Endocrinology follow up with Dr Reina Total time spent on discharge = 35 minutes This includes examination of the patient, discharge planning, medication reconciliation, and communication with other providers. Discharge Instructions Discharge Instructions Date of Service Jan 25, 2017. Admission Reason for Admission: Dm Type 1, Nausea And Vomiting Discharge Discharge Diagnosis / Problem: NAUSEA /VOMITING /ABDOMINAL PAIN, MILD LEUKOCYTOSIS, DIABETES TYPE 1 Discharge Goals Goal(s): Decrease discomfort, Improve function, Improve disease control Activity Recommendations Activity Limitations: resume your previous activity . Instructions / Follow-Up Instructions / Follow-Up Follow up appointment with Dr. Lilly Estrada on 01/29 @ 2:05 PM Follow up with your endocrinology Increase fluid intake Monitor blood sugar f Current Hospital Diet Patient's current hospital diet: Diabetes Type 2 Diet Discharge Diet Recommended Diet: Diabetes Type 1 Diet Pending Studies Studies pending at discharge: no List of pending studies: urine cx and blood cx Laboratory Results Lipid Panel Test 01/25/17 06:05 Range/Units Triglycerides Level 69 0-150 mg/dl Cholesterol Level 120 0-200 mg/dl HDL Cholesterol 55 mg/dl Cholesterol/HDL Ratio 2.2 LDL Cholesterol, Calculated 51 mg/dl Medical Emergencies . Who to Call and When: Medical Emergencies: If at any time you feel your situation is an emergency, please call 911 immediately. . Non-Emergent Contact Non-Emergency issues call your: Primary Care Provider Call Non-Emergent contact if: you have a fever, you have any medication questions . . "Provider Documentation" section prepared by Jaimie Day. . VTE Core Measure Inpt VTE Proph given/why not?: Mohsen Rae, SCD's Additional Copies To Lilly Estrada M.D.
[2017-06-18] MEDS ORDERED: INSPMPNVLG (16:40)
[2017-06-18] MEDS ORDERED: LSN20 PO (17:49)
[2017-06-18] MEDS ORDERED: LPT40 PO (17:49)
[2017-06-18] MEDS ORDERED: ONDA4TAB10 SL (18:05)
== END 2017-01-25 21:01 | disposition home or self-care (01) | DRG 638 ==
LOC: C.EDB 17:09 → C.MED 21:46 → ENRESERV 21:59
PROVIDERS: ADMIT Hospitalist; ATTEND Internal Medicine
DX: E10.65 Type 1 diabetes mellitus with hyperglycemia (principal); N17.9 Acute kidney failure, unspecified; E78.5 Hyperlipidemia, unspecified; I10 Essential (primary) hypertension; E86.0 Dehydration; R11.2 Nausea with vomiting, unspecified; R00.0 Tachycardia, unspecified; Z87.891 Personal history of nicotine dependence

== ENCOUNTER 2017-09-07 16:30 | Emergency (ER) | payer OTHER ==
[~2017-09-07] VITALS: Ht 177.8 cm; Wt 68.8 kg
[~2017-09-07 16:30] MED LIST changes: +INSPMPNVLG; +LPT40 PO; +LSN20 PO; -LSN5 PO; +ONDA4TAB10 SL; -ZCR40 PO
[2017-09-07 17:08] VITALS: TEMP 36.2; Ht 177.8 cm; Wt 68.8 kg
[2017-09-07] MEDS ORDERED: SODIUM CHLORIDE 0.9% 1000ML 1,000 ML IV STA (18:23)
[2017-09-07] MEDS ORDERED: ONDANSETRON INJ 2 MG/ML 2 ML VIAL IV STA (18:23)
--- NOTE | 2017-09-07 18:23 | EMERGENCY ROOM VISIT NOTE ---
History Report prepared by Davina: Marc Thomson Under the Supervision of: Dr. Angleo Fierro M.D. First contact with patient: 18:16 Chief Complaint: VOMITING Stated Complaint: VOMITING ,NAUSOUS, HAVE DIABETES Nursing Triage Summary: patient c/o vomiting, diarrhea and dizziness x 2 hours. BSG= 300s. patient states he took 10 units of regular insulin at noon. BSG in triage 110 type 1 diabetic. patient HPH. coclear implant to left side History of Present Illness The patient is a 41 year old male who presents to the Emergency Room with complaints of persistent vomiting and diarrhea that he has been experiencing for the past 2 hours. The patient is nauseous currently, but denies any abdominal pain. He is a Type I diabetic and noticed that his blood sugar level was 400+ earlier today. He took 10 units of Insulin prior to arrival. His blood sugar in the Department was in the 100s. Source of History: patient Onset: 2 hours Position: other (GI) Quality: other (Vomiting and diarrhea) Associated Symptoms: + nausea, No abdominal pain Review of Systems See HPI for pertinent positives & negatives. A total of 10 systems reviewed and were otherwise negative. Past Medical & Surgical Medical Problems: (1) DM type 1 (diabetes mellitus, type 1) (2) Dyslipidemia (3) History of cochlear implant (4) HTN (hypertension) (5) Nausea & vomiting Family History FHx: Hector's chorea FATHER Social History Smoking Status: Never Smoker Alcohol Use: none Drug Use: none Marital Status: in relationship Housing Status: lives with significant other Occupation Status: unemployed Current/Historical Medications Scheduled Ergocalciferol (Vitamin D 49698 Unit), 1 TAB PO WK Insulin Aspart (novoLOG INSULIN PUMP ), 1 EA N/A UD Lisinopril (Lisinopril), 20 MG PO DAILY Ondasetron Odt (Zofran Odt), 4 MG SL Q6H Allergies Coded Allergies: No Known Allergies (Verified , NONE, 09/07/17) Physical Exam Vital Signs Date Time Temp Pulse Resp B/P (MAP) Pulse Ox O2 Delivery O2 Flow Rate FiO2 09/07/17 20:56 98 145/80 93 09/07/17 19:18 79 21 151/90 100 Room Air 09/07/17 19:10 77 09/07/17 17:08 36.2 92 18 122/88 98 Room Air Physical Exam GENERAL: Patient is a healthy-appearing well-nourished male HEAD: Normocephalic atraumatic EYES: Ocular movements intact pupils equal and react to light OROPHARYNX mucous membranes are moist no exudates present no erythema or edema present NECK: Supple no nuchal rigidity CHEST: Good equal expansion LUNGS: Clear and equal to auscultation CARDIAC: Normal S1 and S2 ABDOMEN: Soft nontender no guarding. No abdominal tenderness. BACK: No CVA tenderness EXTREMITIES: No pain upon palpation normal muscle strength in all groups no clubbing cyanosis or edema NEURO: Patient is following commands and answering questions appropriately. Alert and oriented x3 Cranial Nerves 2-12 grossly intact Medical Decision & Procedures ER Provider Diagnostic Interpretation: Radiology results as stated below per my review and radiologist interpretation: ABDOMEN 2VIEW W/PA CHEST RTN CLINICAL HISTORY: Pt c/o abd pain COMPARISON STUDY: No previous studies for comparison. FINDINGS: The soft tissues, psoas shadows, renal outlines and intestinal gas pattern appear normal. There is no evidence for bowel obstruction. There is no evidence for free intraperitoneal air. No abnormal abdominal calcifications are seen. A frontal view of the chest was performed and is unremarkable. IMPRESSION: Normal study. The above report was generated using voice recognition software. It may contain grammatical, syntax or spelling errors. Electronically signed by: Dino Arnold M.D. 09/07/2017 8:00 PM Dictated Date/Time: 09/07/2017 7:59 PM Laboratory Results 09/07/17 18:55 Red Blood Count 5.07, Mean Corpuscular Volume 88.0, Mean Corpuscular Hemoglobin 32.0, Mean Corpuscular Hemoglobin Concent 36.3, Neutrophils (%) (Auto) 88.4, Lymphocytes (%) (Auto) 3.9, Monocytes (%) (Auto) 7.3, Eosinophils (%) (Auto) 0.2 , Basophils (%) (Auto) 0.0, Neutrophils # (Auto) 15.65, Lymphocytes # (Auto) 0.69, Monocytes # (Auto) 1.30, Eosinophils # (Auto) 0.03, Basophils # (Auto) 0.00 09/07/17 18:55 Test 09/07/17 18:50 09/07/17 18:55 09/07/17 18:56 09/07/17 18:58 White Blood Count 17.70 K/uL (4.8-10.8) Red Blood Count 5.07 M/uL (4.7-6.1) Hemoglobin 16.2 g/dL (14.0-18.0) Hematocrit 44.6 % (42-52) Mean Corpuscular Volume 88.0 fL (80-100) Mean Corpuscular Hemoglobin 32.0 pg (25-34) Mean Corpuscular Hemoglobin Concent 36.3 g/dl (32-36) Platelet Count 306 K/uL (130-400) Neutrophils (%) (Auto) 88.4 % Lymphocytes (%) (Auto) 3.9 % Monocytes (%) (Auto) 7.3 % Eosinophils (%) (Auto) 0.2 % Basophils (%) (Auto) 0.0 % Neutrophils # (Auto) 15.65 K/uL (1.4-6.5) Lymphocytes # (Auto) 0.69 K/uL (1.2-3.4) Monocytes # (Auto) 1.30 K/uL (0.11-0.59) Eosinophils # (Auto) 0.03 K/uL (0-0.5) Basophils # (Auto) 0.00 K/uL (0-0.2) Immature Granulocyte % (Auto) 0.2 % Immature Granulocyte # (Auto) 0.03 K/uL (0.00-0.02) Spherocytes 2+ Est Creatinine Clear Calc Drug Dose 73.7 ml/min Estimated GFR () 78.9 Estimated GFR (Non- 68.1 BUN/Creatinine Ratio 17.9 (10-20) Calcium Level 9.9 mg/dl (8.5-10.1) Total Bilirubin 0.8 mg/dl (0.2-1) Direct Bilirubin mg/dl (0-0.2) Aspartate Amino Transf (AST/SGOT) 27 U/L (15-37) Alanine Aminotransferase (ALT/SGPT) 36 U/L (12-78) Alkaline Phosphatase 61 U/L (45-117) Total Protein 7.9 gm/dl (6.4-8.2) Albumin 4.0 gm/dl (3.4-5.0) Lipase 157 U/L (73-393) Chemistry Specimen Hemolysis Urine Color BROWN Urine Appearance CLEAR (CLEAR) Urine pH (4.5-7.5) Urine Specific Leary 1.020 (1.000-1.030) Urine Protein POS (NEG) Urine Glucose (UA) (NEG) Urine Ketones (NEG) Urine Occult Blood (NEG) Urine Nitrite (NEG) Urine Bilirubin (NEG) Urine Urobilinogen (NEG) Urine Leukocyte Esterase (NEG) Urine WBC (Auto) /hpf (0-5) Urine RBC (Auto) /hpf (0-4) Urine Hyaline Casts (Auto) /lpf (0-5) Urine Epithelial Cells (Auto) /lpf (0-5) Urine Bacteria (Auto) (NEG) Urine RBC 0-4 /hpf (0-4) Urine WBC 0 /hpf (0-5) Urine Epithelial Cells 0-5 /lpf (0-5) Urine Bacteria NEG (NEG) Urine Sperm PRESENT (NONE PRSENT) Urine Sperm (Auto) PRESENT (NOT PRESENT) Bedside Hemoglobin 16.0 g/dl (14.0-18.0) Bedside Hematocrit 47 % (42-52) Bedside Sodium 141 mEq/L (135-144) Bedside Potassium 3.6 mEq/L (3.3-5.0) Bedside Chloride 104 mEq/L (101-112) Bedside Total CO2 23 mEq/l (24-31) Anion Gap 19.0 mmol/L (16-25) Bedside Blood Urea Nitrogen 24 mg/dl (7-18) Bedside Creatinine 1.1 mg/dl (0.6-1.3) Bedside Glucose (other) 194 mg/dl (70-99) Bedside Ionized Calcium (Maira) 1.18 mmol/l (1.12-1.32) Date/Time Source Procedure Growth Status 09/07/17 18:50 Stool C.difficile Toxin B Gene (PCR) - Final No C. difficile toxin B gene detected Complete Labs reviewed by ED physician. Medications Administered Medications (Trade) Dose Ordered Sig/Soha Route Start Time Stop Time Status Last Admin Dose Admin Sodium Chloride 1,000 ml @ 999 mls/hr Q1H1M STAT IV 09/07/17 18:23 09/07/17 19:23 DC 09/07/17 19:18 999 MLS/HR Ondansetron HCl (Zofran Inj) 4 mg NOW STAT IV 09/07/17 18:23 09/07/17 18:26 DC 09/07/17 19:18 4 MG Ondansetron HCl (ZOFRAN ODT 4MG Home Pack) 1 homepack UD STAT PO 09/07/17 20:08 09/07/17 20:09 DC 09/07/17 20:32 1 HOMEPACK Ketorolac Tromethamine (Toradol Inj) 30 mg NOW STAT IV 09/07/17 20:08 09/07/17 20:09 DC 09/07/17 20:32 30 MG ED Course 1818: Past medical records reviewed. The patient was evaluated in room B6. A complete history and physical examination was performed. 1822: Ordered Zofran 4 mg IV, Sodium Chloride 1000 mL @ 999 mL/hr IV. 2007: Ordered Toradol 30 mg IV, Zofran 1 homepack PO. 2027: Upon reexamination the patient is resting in bed. I discussed results and treatment plan with the patient. He verbalizes agreement and understanding. The patient is ready for discharge. Medical Decision Differential diagnosis: Etiologies such as gastroenteritis, food borne illness, infections, appendicitis , diverticulitis, inflammatory bowel disease, obstruction, GI bleed, biliary pathology, as well as others were entertained. This is a 41-year-old male who presents emergency department complaining of gastroenteritis. Serial abdominal examinations were performed on this patient in the emergency department and at no time did the patient exhibited a surgical abdomen. I will note that the patient is a type I diabetic however his sugar is within normal limits. In addition he has no evidence of DKA as his CO2 is normal. An IV was established, patient given normal saline bolus, Zofran. abdominal examinations again performed on the patient did not have any abdominal tenderness. Based on these findings I felt that the patient can be safely discharged home for follow-up with his primary care physician. The patient was given Zofran. He did provide a stool sample which was sent for culture. Patient was in agreement with the treatment plan. Impression Primary Impression: Gastroenteritis Scribe Attestation The scribe's documentation has been prepared under my direction and personally reviewed by me in its entirety. I confirm that the note above accurately reflects all work, treatment, procedures, and medical decision making performed by me. Departure Information Dispostion Home / Self-Care Prescriptions Ondasetron Odt (ZOFRAN ODT) 4 Mg Tab 4 MG SL Q6H for Nausea, #6 TAB Prov: Vadim, Angelo M., MD 09/07/17 Referrals Lilly Estrada M.D. (PCP) Forms HOME CARE DOCUMENTATION FORM, IMPORTANT VISIT INFORMATION Patient Instructions My [facility] Additional Instructions Culture results are usually available in approx 48 hours You have been examined and treated today on an emergency basis only. This is not a substitute for, or an effort to provide, complete comprehensive medical care. It is impossible to recognize and treat all injuries or illnesses in a single emergency department visit. It is therefore important that you follow up closely with Dr Estrada. Call as soon as possible for an appointment. Thank you for your time and consideration. I look forward to speaking with you again soon. Please don't hesitate to call us if you have any questions.
[2017-09-07] MEDS ORDERED: ERGO500011 PO (18:46)
[2017-09-07 19:14] LABS: ISTAT CREATININE 1.1 mg/dl (0.6-1.3); ISTAT IONIZED CALCIUM 1.18 mmol/l (1.12-1.32); ISTAT POTASSIUM 3.6 mEq/L (3.3-5.0)
[2017-09-07 19:30] LABS: CALCIUM 9.9 mg/dl (8.5-10.1); CREATININE 1.31 mg/dl (0.60-1.40); POTASSIUM 3.6 mmol/L (3.5-5.1); TOTAL PROTEIN 7.9 gm/dl (6.4-8.2)
[2017-09-07 19:48] LABS: HEMATOCRIT 44.6 % (42-52); HEMOGLOBIN 16.2 g/dL (14.0-18.0); MEAN CORPUSCULAR HGB CONC 36.3 g/dl (32-36); PLATELET COUNT 306 K/uL (130-400)
[2017-09-07 19:49] LABS: EOS % 0.2 %; EOS ABS # 0.03 K/uL (0-0.5); IG# 0.03 K/uL (0.00-0.02); LYMPH % 3.9 %; LYMPH ABS # 0.69 K/uL (1.2-3.4); MONO % 7.3 %; NEUT % 88.4 %; NEUT ABS # 15.65 K/uL (1.4-6.5)
--- NOTE | 2017-09-07 20:01 | DIAGNOSTIC IMAGING REPORT ---
ABDOMEN 2VIEW W/PA CHEST RTN CLINICAL HISTORY: Pt c/o abd pain COMPARISON STUDY: No previous studies for comparison. FINDINGS: The soft tissues, psoas shadows, renal outlines and intestinal gas pattern appear normal. There is no evidence for bowel obstruction. There is no evidence for free intraperitoneal air. No abnormal abdominal calcifications are seen. A frontal view of the chest was performed and is unremarkable. IMPRESSION: Normal study. The above report was generated using voice recognition software. It may contain grammatical, syntax or spelling errors. Electronically signed by: Dino Arnold M.D. 09/07/2017 8:00 PM Dictated Date/Time: 09/07/2017 7:59 PM
[2017-09-07] MEDS ORDERED: ONDANSETRON HOME PACK 4MG OD TAB PO STA (20:08)
[2017-09-07] MEDS ORDERED: KETOROLAC TROMETHAMINE 30 MG/ML VIAL IV STA (20:08)
[2017-09-07] MEDS ORDERED: ONDA4TAB10 SL (20:09)
[2017-09-07 20:56] VITALS: BP 145/80; PULSE 98; O2SAT 93
== END 2017-09-07 20:57 | disposition home or self-care (01) ==
LOC: C.EDB 19:01
DX: K52.9 Noninfective gastroenteritis and colitis, unspecified (principal); R42 Dizziness and giddiness; E10.9 Type 1 diabetes mellitus without complications; I10 Essential (primary) hypertension

== ENCOUNTER 2017-09-09 22:23 | Inpatient (IN) | payer OTHER ==
[~2017-09-09] VITALS: Ht 180.3 cm; Wt 70.2 kg
[~2017-09-09 22:23] MED LIST changes: +ERGO500011 PO; -LPT40 PO
[2017-09-09] MEDS ORDERED: PROMETHAZINE HCL INJ 25 MG in SODIUM CHLORIDE 0.9% 50ML 50 ML IV STA (23:09)
[2017-09-09] MEDS ORDERED: SODIUM CHLORIDE 0.9% 1000ML 1,000 ML IV STA (23:09)
--- NOTE | 2017-09-09 23:10 | EMERGENCY ROOM VISIT NOTE ---
History Report prepared by Davina: Krystin Graham Under the Supervision of: Dr. Yaniv Levy M.D. First contact with patient: 23:00 Chief Complaint: FLU LIKE SX Stated Complaint: FLU, DRY HEAVES History of Present Illness The patient is a 41 year old male who presents to the Emergency Room with complaints of persistent vomiting that started a couple of days ago. The patient rates his pain a 10/10. The patient was in the ER 2 days ago with similar symptoms. The patient notes he is experiencing chest pain, back pain, and abdominal pain when vomiting. He also reports he is experiencing diarrhea. The patient has a history of type I Diabetes but notes he has not needed any extra insulin. The patient denies any shortness of breath. Source of History: patient Onset: a couple of days ago Position: other (global) Symptom Intensity: 10/10 Timing: other (persistent) Associated Symptoms: + chest pain, + abdominal pain, + back pain, + diarrhea , No SOB Review of Systems See HPI for pertinent positives & negatives. A total of 10 systems reviewed and were otherwise negative. Past Medical & Surgical Medical Problems: (1) DM type 1 (diabetes mellitus, type 1) (2) Dyslipidemia (3) History of cochlear implant (4) HTN (hypertension) (5) Nausea & vomiting Family History FHx: Hector's chorea FATHER Social History Smoking Status: Never Smoker Alcohol Use: none Drug Use: none Marital Status: in relationship Housing Status: lives with significant other Occupation Status: unemployed Current/Historical Medications Scheduled Ergocalciferol (Vitamin D 66673 Unit), 1 TAB PO WK Insulin Aspart (novoLOG INSULIN PUMP ), 1 EA N/A UD Lisinopril (Lisinopril), 20 MG PO DAILY Ondasetron Odt (Zofran Odt), 4 MG SL Q6H Allergies Coded Allergies: No Known Allergies (Verified , NONE, 09/07/17) Physical Exam Vital Signs Date Time Temp Pulse Resp B/P (MAP) Pulse Ox O2 Delivery O2 Flow Rate FiO2 09/10/17 01:41 117 16 138/78 98 Room Air 09/10/17 00:19 36.8 09/10/17 00:14 128 16 144/68 97 Room Air 09/09/17 22:28 140 20 97 Room Air Physical Exam GENERAL: Patient is severely uncomfortable appearing. Dehydrated appearing. Dry heaving periodically. HEENT: No acute trauma, normocephalic atraumatic, mucous membranes moist, no nasal congestion, no scleral icterus. NECK: No stridor, no adenopathy, no meningismus, trachea is midline. LUNGS: No dyspnea. Clear to auscultation and equal bilaterally. No wheeze, no rhonchi. HEART: Tachycardic. No murmurs, rubs, gallops appreciated. ABDOMEN: Soft, nontender, bowel sounds positive, no masses appreciated, no peritonitis. Insulin pump site left abdomen. BACK: No midline tenderness, no CVA tenderness EXTREMITIES: Normal motion all extremities, no cyanosis, no edema. NEUROLOGIC: Alert and oriented, no acute motor or sensory deficits, no focal weakness, cranial nerves grossly intact. Left cochlear implant. SKIN: No rash, no jaundice, no diaphoresis. Medical Decision & Procedures ER Provider Diagnostic Interpretation: X ray results are stated below per my interpretation: Chest: 1 view: No infiltrate, no effusion, normal cardiac border. Unchanged from previous. Laboratory Results 09/09/17 23:17 Red Blood Count 4.28, Mean Corpuscular Volume 89.7, Mean Corpuscular Hemoglobin 32.2, Mean Corpuscular Hemoglobin Concent 35.9, Mean Platelet Volume 10.2, Neutrophils (%) (Auto) 86.9, Lymphocytes (%) (Auto) 7.5, Monocytes (%) (Auto) 4.8, Eosinophils (%) (Auto) 0.2, Basophils (%) (Auto) 0.2, Neutrophils # (Auto) 16.11, Lymphocytes # (Auto) 1.40, Monocytes # (Auto) 0.89, Eosinophils # (Auto) 0.04, Basophils # (Auto) 0.03 09/09/17 23:17 Test 09/09/17 23:17 09/09/17 23:22 09/09/17 23:29 09/10/17 00:11 White Blood Count 18.55 K/uL (4.8-10.8) Red Blood Count 4.28 M/uL (4.7-6.1) Hemoglobin 13.8 g/dL (14.0-18.0) Hematocrit 38.4 % (42-52) Mean Corpuscular Volume 89.7 fL (80-100) Mean Corpuscular Hemoglobin 32.2 pg (25-34) Mean Corpuscular Hemoglobin Concent 35.9 g/dl (32-36) Platelet Count 330 K/uL (130-400) Mean Platelet Volume 10.2 fL (7.4-10.4) Neutrophils (%) (Auto) 86.9 % Lymphocytes (%) (Auto) 7.5 % Monocytes (%) (Auto) 4.8 % Eosinophils (%) (Auto) 0.2 % Basophils (%) (Auto) 0.2 % Neutrophils # (Auto) 16.11 K/uL (1.4-6.5) Lymphocytes # (Auto) 1.40 K/uL (1.2-3.4) Monocytes # (Auto) 0.89 K/uL (0.11-0.59) Eosinophils # (Auto) 0.04 K/uL (0-0.5) Basophils # (Auto) 0.03 K/uL (0-0.2) RDW Standard Deviation 44.6 fL (36.4-46.3) RDW Coefficient of Variation 13.6 % (11.5-14.5) Immature Granulocyte % (Auto) 0.4 % Immature Granulocyte # (Auto) 0.08 K/uL (0.00-0.02) Est Creatinine Clear Calc Drug Dose 55.6 ml/min Estimated GFR () 57.6 Estimated GFR (Non- 49.7 BUN/Creatinine Ratio 16.3 (10-20) Calcium Level 9.7 mg/dl (8.5-10.1) Phosphorus Level 3.1 mg/dl (2.5-4.9) Magnesium Level 1.9 mg/dl (1.8-2.4) Total Bilirubin 0.8 mg/dl (0.2-1) Direct Bilirubin 0.1 mg/dl (0-0.2) Aspartate Amino Transf (AST/SGOT) 14 U/L (15-37) Alanine Aminotransferase (ALT/SGPT) 27 U/L (12-78) Alkaline Phosphatase 73 U/L (45-117) Total Creatine Kinase 158 U/L (39-308) Troponin I < 0.015 ng/ml (0-0.045) Total Protein 7.5 gm/dl (6.4-8.2) Albumin 3.8 gm/dl (3.4-5.0) Lipase 120 U/L (73-393) Beta-Hydroxybutyric Acid 80.65 mg/dL (0.2-2.81) Bedside Lactic Acid Venous 4.00 mmol/L (0.90-1.70) Bedside Hemoglobin 13.6 g/dl (14.0-18.0) Bedside Hematocrit 40 % (42-52) Bedside Sodium 133 mEq/L (135-144) Bedside Potassium 4.7 mEq/L (3.3-5.0) Bedside Chloride 99 mEq/L (101-112) Bedside Total CO2 15 mEq/l (24-31) Anion Gap 25.0 mmol/L (16-25) Bedside Blood Urea Nitrogen 29 mg/dl (7-18) Bedside Creatinine 1.3 mg/dl (0.6-1.3) Bedside Glucose (other) 658 mg/dl (70-99) Bedside Ionized Calcium (Maira) 1.18 mmol/l (1.12-1.32) Arterial Blood pH 7.24 (7.35-7.45) Arterial Blood Partial Pressure CO2 29 mmHg (35-46) Arterial Blood Partial Pressure O2 112 mm/Hg (80-95) Arterial Blood HCO3 12 mmol/L (19-24) Arterial Blood Oxygen Saturation 97.6 % (90-95) Arterial Blood Base Excess -13.6 mEq/L (-9-1.8) Arterial Blood Gas Delivery ROOM AIR Jasen Test POS (POS) Laboratory results as reviewed by me. Medications Administered Medications (Trade) Dose Ordered Sig/Soha Route Start Time Stop Time Status Last Admin Dose Admin Sodium Chloride 1,000 ml @ 999 mls/hr Q1H1M STAT IV 09/09/17 23:09 09/10/17 00:09 DC 09/09/17 23:35 999 MLS/HR Promethazine HCl 25 mg/Sodium Chloride 51 ml @ 204 mls/hr NOW STAT IV 09/09/17 23:09 09/09/17 23:23 DC 09/09/17 23:09 204 MLS/HR Ondansetron HCl (Zofran Inj) 4 mg NOW STAT IV 09/09/17 23:50 09/09/17 23:52 DC 09/10/17 00:18 4 MG Insulin Human Regular (NovoLIN R BOLUS FROM BAG) 2.5 unit NOW STAT IV 1/25/18 00:13 09/10/17 00:14 DC 09/10/17 00:25 2.5 UNIT Insulin Human Regular 250 units/ Sodium Chloride 252.5 ml @ 0 mls/hr Q24H IV 09/10/17 00:15 09/10/17 00:16 DC 09/10/17 00:25 2.5 MLS/HR Sodium Chloride 1,000 ml @ 100 mls/hr Q10H STAT IV 09/10/17 01:39 09/10/17 03:15 DC 09/10/17 02:21 100 MLS/HR ECG Indication: vomiting Rate (beats per minute): 120 Rhythm: sinus tachycardia Findings: ST depression (depedent, lateral), no acute ischemic change, no ectopy, other (QTC of 435) ED Course 2300: The patient was evaluated in room B4B. A complete history and physical exam was performed. 0016: The patient is experiencing more vomiting. I will administer 4 more of Zofran. 0020: Russ was paged. 0035: Discussed the patient's case with Russ Pickard. He agrees with the treatment plan. The patient will be evaluated for further treatment and disposition. 0050: The patient is feeling more comfortable. Nurses noticed increased swelling. Medical Decision Differential: Gastroenteritis, Food Borne, Esophageal Perforation, , Electrolyte Abnormality, Dehydration, Intraabdominal Infection, UTI/ Pyelonephritis, Bowel Obstruction, Biliary Pathology, amongst other pathology entertained. 41 yr old insulin dependant male arrives with increasing nausea, vomiting over last day or so. Initially with n/v/d 3 days ago and was evaluated in ED, feeling much better and discharged. Noting doing well until alst 12-24 hours with increasing vomiting. No further diarrhea. Admits didn't check BSG at home. He is tachy, dehydrated and clearly uncomfortable appearing. Lungs clear , abdomen soft, and no evidence of meningitis by exam. CXR looks good. UA without infection. WBC 18, though I suspect this is secondary to dehydration and DKA and thus will hold on cultures and abx. Nausea controlled with phenergan/zofran. I do not feel this is bowel obstruction nor intraabdominal infection given his soft benign abdomen. Given level of dehydration given 2 L NSS along with infusion after this. As bicarb low, acidotic and severely elevated BSG he will need Insulin gtt which I had pharmacy place order with plan 250-300 glucose range currently. As normal K to start off will defer further fluid infusion choices to hospitalist. Many rechecks and patient breathing OK with no headaches nor neuro deficits. Medication Reconcilliation Current Medication List: was personally reviewed by me Blood Pressure Screening Patient's blood pressure: Elevated blood pressure (hospitalist to monitor) Consults Time Called: 19 Consulting Physician: Russ Pickard Returned Call: [phone] Discussed the patient's case with Russ Pickard. He agrees with the treatment plan. The patient will be evaluated for further treatment and disposition. Impression Primary Impression: DKA (diabetic ketoacidoses) Critical Care I have personally spent greater than 45 minutes of critical care time in the direct management of this patient. This was a life/limb threatening event. This includes time spent evaluating patient, direct bedside care, chart review, placing orders, interpretation of diagnostic studies, discussion with consultants, patient, and family members, as well as other required patient management activities. This 45 minutes is in excess of all separately billable procedures. Scribe Attestation The scribe's documentation has been prepared under my direction and personally reviewed by me in its entirety. I confirm that the note above accurately reflects all work, treatment, procedures, and medical decision making performed by me. Departure Information Dispostion Being Evaluated By Hospitalist Referrals Lilly Estrada M.D. (PCP) Patient Instructions My [facility] Problem Qualifiers Primary Impression: DKA (diabetic ketoacidoses) Diabetes mellitus type: type 1 Diabetes mellitus complication detail: without coma Qualified Codes: E10.10 - Type 1 diabetes mellitus with ketoacidosis without coma
[2017-09-09 23:40] LABS: BASO % 0.2 %; BASO ABS # 0.03 K/uL (0-0.2); EOS % 0.2 %; EOS ABS # 0.04 K/uL (0-0.5); HEMATOCRIT 38.4 % (42-52); HEMOGLOBIN 13.8 g/dL (14.0-18.0); IG# 0.08 K/uL (0.00-0.02); LYMPH % 7.5 %; MEAN CELL VOLUME 89.7 fL (80-100); MEAN CORPUSCULAR HEMOGLOBIN 32.2 pg (25-34); MEAN CORPUSCULAR HGB CONC 35.9 g/dl (32-36); MEAN PLATELET VOLUME 10.2 fL (7.4-10.4); MONO % 4.8 %; MONO ABS # 0.89 K/uL (0.11-0.59); NEUT % 86.9 %; NEUT ABS # 16.11 K/uL (1.4-6.5); PLATELET COUNT 330 K/uL (130-400); RED CELL DISTRIBUTION WIDTH CV 13.6 % (11.5-14.5); RED CELL DISTRIBUTION WIDTH SD 44.6 fL (36.4-46.3); WHITE BLOOD COUNT 18.55 K/uL (4.8-10.8)
[2017-09-09 23:42] LABS: ISTAT CREATININE 1.3 mg/dl (0.6-1.3); ISTAT IONIZED CALCIUM 1.18 mmol/l (1.12-1.32); ISTAT POTASSIUM 4.7 mEq/L (3.3-5.0)
[2017-09-09] MEDS ORDERED: INSULIN IV INFUSION PROTOCOL SCH (23:45)
[2017-09-09] MEDS ORDERED: SEVERE STRESS LEVEL SCH (23:45)
[2017-09-09] MEDS ORDERED: ONDANSETRON INJ 2 MG/ML 2 ML VIAL IV STA (23:50)
[2017-09-10] VITALS (9 sets, daily range): BP systolic 120–183; BP diastolic 72–93; PULSE 71–101; TEMP 36.6–37.1; O2SAT 98–100; Ht 180.3 cm; Wt 70.2 kg
[2017-09-10 00:05] LABS: ALBUMIN 3.8 gm/dl (3.4-5.0); ALKALINE PHOSPHATASE 73 U/L (45-117); ALT/SGPT 27 U/L (12-78); AST/SGOT 14 U/L (15-37); BLOOD UREA NITROGEN 28 mg/dl (7-18); CALCIUM 9.7 mg/dl (8.5-10.1); CARBON DIOXIDE 15 mmol/L (21-32); GLUCOSE 638 mg/dl (70-99); LIPASE 120 U/L (73-393); PHOSPHORUS 3.1 mg/dl (2.5-4.9); POTASSIUM 4.6 mmol/L (3.5-5.1); SODIUM 131 mmol/L (136-145); TOTAL PROTEIN 7.5 gm/dl (6.4-8.2)
[2017-09-10] MEDS ORDERED: NovoLIN R BOLUS FROM BAG IV STA (00:13)
[2017-09-10] MEDS ORDERED: GLUCAGON FOR INJ 1 MG VIAL SQ PRN ×2 (00:15→03:45)
[2017-09-10] MEDS ORDERED: INSULIN REGULAR 250 UNITS in SODIUM CHLORIDE 0.9% 250ML 250 ML IV SCH (00:15)
[2017-09-10] MEDS ORDERED: DEXTROSE 50% 50 ML SYR IV PRN ×2 (00:15→03:45)
[2017-09-10] MEDS ORDERED: GLUCOSE 40% GEL 15 GM TUBE PO PRN ×2 (00:15→03:45)
[2017-09-10] MEDS ORDERED: GLUCOSE 10 TABS/TUBE PO PRN ×2 (00:15→03:45)
[2017-09-10] MEDS ORDERED: SODIUM CHLORIDE 0.9% 1000ML 1,000 ML IV STA (01:39)
[2017-09-10] MEDS ORDERED: INSULIN IV INFUSION PROTOCOL STA (02:25)
[2017-09-10] MEDS ORDERED: PENDING NSS+20mEq KCL IVF SCH (02:30)
[2017-09-10] MEDS ORDERED: MODERATE STRESS LEVEL ONE (02:30)
[2017-09-10] MEDS ORDERED: DKA GOAL RANGE 150-250 mg/dl 1 EA ONE (02:30)
[2017-09-10] MEDS ORDERED: ONDANSETRON INJ 2 MG/ML 2 ML VIAL IV PRN (02:45)
[2017-09-10] MEDS ORDERED: ACETAMINOPHEN 325 MG TAB PO PRN (02:45)
[2017-09-10] MEDS ORDERED: ALUMINUM/MAGNESIUM/SIMETH (MAALOX MAX) 30 ML UDC PO PRN (03:00)
[2017-09-10] MEDS ORDERED: PHARMACY GLYCEMIC MGMT CONSULT PRN (03:16)
[2017-09-10] MEDS ORDERED: SODIUM CHLORIDE 0.9% 1000ML 1,000 ML IV SCH (03:30)
[2017-09-10] MEDS ORDERED: NSS + 20MEQ KCL 1000ML 1,000 ML IV SCH (04:15)
[2017-09-10 04:32] LABS: CALCIUM 8.6 mg/dl (8.5-10.1); CREATININE 1.49 mg/dl (0.60-1.40); PHOSPHORUS 3.1 mg/dl (2.5-4.9); POTASSIUM 4.2 mmol/L (3.5-5.1)
[2017-09-10 04:38] LABS: INR 0.9 (0.9-1.1)
[2017-09-10] MEDS: INSULIN REGULAR 250 UNITS in SODIUM CHLORIDE 0.9% 250ML 250 ML IV SCH ×5 (05:34→15:16)
--- NOTE | 2017-09-10 05:39 | HISTORY & PHYSICAL EXAMINATION ---
DATE OF ADMISSION: 09/10/2017 PRIMARY CARE PHYSICIAN: Dr. Lilly Estrada. CHIEF COMPLAINT: Nausea, vomiting, diarrhea for the last 3 days with generalized weakness. HISTORY OF PRESENT COMPLAINT: He is a 41-year-old male with significant past medical history of type 1 diabetes mellitus and hyperlipidemia, apparently has been complaining of nausea and vomiting with diarrhea for the last 3 days. He has been unable to keep anything down. He does have abdominal pain associated with it and the diarrhea has been quite a few times and in the ER, he has it 3 times already. He denies having any fever, chills or rigors, any cough or phlegm, any chest pain, shortness of breath. He does not have any swelling of the legs. Denies having any problem with his urine. In the Emergency Room, he was noted to have a high white count to low pH and the blood sugar was elevated to 638. From that point, he was diagnosed with DKA and has been admitted to telemetry unit for continuation of care. PAST MEDICAL HISTORY: Significant for type 1 diabetes with microalbuminemia, hyperlipidemia, and undiagnosed cardiac murmur. PAST SURGICAL HISTORY: Implant cochlear device. FAMILY HISTORY: Significant for sister has mental disorder and type 2 diabetes. Father did have Hector's chorea. SOCIAL HISTORY: He is single. He quit smoking in 2009. He drinks alcohol occasionally and he has been reasonably active. ALLERGIES: No known allergies. MEDICATIONS: As an outpatient, he has been on vitamin D 50,000 units every week, insulin aspart as directed, Zofran 4 mg sublingual as directed, lisinopril 20 mg daily. REVIEW OF SYSTEMS: Other systemic review unremarkable except for those mentioned in history of present complaint. PHYSICAL EXAMINATION: GENERAL: On examination in the Emergency Room, he was not having any acute distress, but his mouth looked very dry. He was having some problem with speech, but no other acute distress. VITAL SIGNS: Temperature 36.8, pulse 117, blood pressure 138/78, saturation 98% on room air. HEENT: Unremarkable. NECK: Supple. No JVD, no bruit. CHEST: Clear to auscultate bilaterally. HEART: S1, S2 with a 2/6 systolic murmur over precordium. ABDOMEN: Soft, tender, generalized. No guarding or rigidity. Bowel sounds present. EXTREMITIES: Negative for any edema. MUSCULOSKELETAL SYSTEM: Did not show any acute arthritis. CENTRAL NERVOUS SYSTEM: He was alert, awake, oriented x3 and no focal sensory and/or motor deficit appreciated. LABORATORY DATA: Noted today, white count was 18.55, H&H 13.8/38.4, platelet was 330. Blood gas pH 7.24, pCO2 29, pO2 112, bicarbonate 12 and base excess -13 and he was on room air. Electrolytes: Sodium 133, potassium 4.7, chloride 99, carbon dioxide 15, anion gap 25, BUN 29, creatinine 1.70. Blood sugar at 638 that went down to 492. LFTs unremarkable. Beta hydroxybutyrate acid 80.65. Chest x-ray unremarkable. IMPRESSION AND PLAN: 1. Diabetic ketoacidosis. Known history of diabetes type 1, has been having nausea, vomiting, and diarrhea most likely secondary to viral gastroenteritis. We will send his stool for C. diff colitis and culture. He will be admitted to telemetry unit on insulin drip and diabetic ketoacidosis protocol. Pharmacy consult for insulin management. We will hold his home insulin at this time. 2. Microalbuminemia. He has been on lisinopril, continue with that. 3. Hyperlipidemia. He has not been taking any medications for that yet. 4. Gastrointestinal prophylaxis with Maalox and Mylanta as needed. 5. Deep venous thrombosis prophylaxis with Lovenox. 6. Code status. He will be a full code. In my clinical judgment, the beneficiary meets criteria as per CMS for 2 midnights' stay in the hospital. ELVIRA
[2017-09-10] MEDS ORDERED: PNEUMOCOCCAL ADMINISTRATION CHARGE ONE (05:45)
[2017-09-10] MEDS ORDERED: PNEUMOCOCCAL POLYSACCHARIDES 25 MCG/0.5 ML VIAL/SYR IM. ONE (05:45)
[2017-09-10] MEDS ORDERED: D5NSS + 20MEQ KCL 1,000 ML IV SCH (06:00)
--- NOTE | 2017-09-10 06:27 | DIAGNOSTIC IMAGING REPORT ---
CHEST ONE VIEW PORTABLE CLINICAL HISTORY: Generalized Weakness dyspnea COMPARISON STUDY: 09/07/2017 FINDINGS: The bones soft tissues and hemidiaphragms are normal. The cardiomediastinal silhouette is normal. The lungs are clear. The pulmonary vasculature is normal. IMPRESSION: Negative chest. The above report was generated using voice recognition software. It may contain grammatical, syntax or spelling errors. Electronically signed by: Dino Arnold M.D. 09/10/2017 6:25 AM Dictated Date/Time: 09/10/2017 6:25 AM
[2017-09-10] MEDS: ENOXAPARIN 40 MG/0.4 ML SYR SC SCH (09:00)
[2017-09-10] MEDS ORDERED: INSULIN ASPART 100 UNITS/ML 3 ML PEN SC SCH (09:00)
[2017-09-10] MEDS ORDERED: LISINOPRIL 20 MG TAB PO SCH (09:00)
[2017-09-10] MEDS: INSULIN ASPART 100 UNITS/ML 3 ML PEN SC SCH ×2 (09:00→12:50)
[2017-09-10 10:11] LABS: CALCIUM 8.7 mg/dl (8.5-10.1); CREATININE 1.28 mg/dl (0.60-1.40); POTASSIUM 4.5 mmol/L (3.5-5.1)
[2017-09-10 10:16] LABS: PHOSPHORUS 2.4 mg/dl (2.5-4.9)
--- NOTE | 2017-09-10 11:59 | Progress Note ---
Medicine Progress Note Date & Time of Visit: Sep 10, 2017 at 11:51. Subjective patient seen sitting up in bed, comfortable states he feels improved today compared to yesterday still has diarrhea ~4x since admission, occasional abdominal pain denies nausea, vomiting no dizziness, chest pain, dyspnea, palpitations Objective Last 8 Hrs Date Time Temp Pulse Resp B/P (MAP) Pulse Ox O2 Delivery O2 Flow Rate FiO2 09/10/17 11:26 36.8 86 16 183/93 (123) 100 Room Air 09/10/17 08:00 99 Room Air 09/10/17 07:20 36.9 91 16 172/87 (115) 99 Room Air 09/10/17 04:53 98 Room Air 09/10/17 04:00 Room Air Physical Exam: General- oriented x 3, not in distress, speaks in sentences with no effort Head- atraumatic Eyes- PERRL, EOMI, anicteric ENT- oropharynx clear Neck- supple, no JVD, no adenopathy, no thyromegaly Lungs- clear breath sounds bilaterally Heart- regular rhythm; no murmur, normal rate Abdomen- normal bowel sounds, nondistended, soft, nontender Extremities- no pretibial edema, no calf tenderness; peripheral pulses intact Neuro- alert, oriented x 3; no gross focal deficits Skin- warm & dry Laboratory Results: Last 24 Hours Test 09/09/17 23:17 09/09/17 23:22 09/09/17 23:29 09/10/17 00:11 White Blood Count 18.55 K/uL Red Blood Count 4.28 M/uL Hemoglobin 13.8 g/dL Hematocrit 38.4 % Mean Corpuscular Volume 89.7 fL Mean Corpuscular Hemoglobin 32.2 pg Mean Corpuscular Hemoglobin Concent 35.9 g/dl Platelet Count 330 K/uL Mean Platelet Volume 10.2 fL Neutrophils (%) (Auto) 86.9 % Lymphocytes (%) (Auto) 7.5 % Monocytes (%) (Auto) 4.8 % Eosinophils (%) (Auto) 0.2 % Basophils (%) (Auto) 0.2 % Neutrophils # (Auto) 16.11 K/uL Lymphocytes # (Auto) 1.40 K/uL Monocytes # (Auto) 0.89 K/uL Eosinophils # (Auto) 0.04 K/uL Basophils # (Auto) 0.03 K/uL RDW Standard Deviation 44.6 fL RDW Coefficient of Variation 13.6 % Immature Granulocyte % (Auto) 0.4 % Immature Granulocyte # (Auto) 0.08 K/uL Sodium Level 131 mmol/L Potassium Level 4.6 mmol/L Chloride Level 96 mmol/L Carbon Dioxide Level 15 mmol/L Anion Gap 20.0 mmol/L 25.0 mmol/L Blood Urea Nitrogen 28 mg/dl Creatinine 1.70 mg/dl Est Creatinine Clear Calc Drug Dose 55.6 ml/min Estimated GFR () 57.6 Estimated GFR (Non- 49.7 BUN/Creatinine Ratio 16.3 Random Glucose 638 mg/dl Calcium Level 9.7 mg/dl Phosphorus Level 3.1 mg/dl Magnesium Level 1.9 mg/dl Total Bilirubin 0.8 mg/dl Direct Bilirubin 0.1 mg/dl Aspartate Amino Transf (AST/SGOT) 14 U/L Alanine Aminotransferase (ALT/SGPT) 27 U/L Alkaline Phosphatase 73 U/L Total Creatine Kinase 158 U/L Troponin I < 0.015 ng/ml Total Protein 7.5 gm/dl Albumin 3.8 gm/dl Lipase 120 U/L Beta-Hydroxybutyric Acid 80.65 mg/dL Bedside Lactic Acid Venous 4.00 mmol/L Bedside Hemoglobin 13.6 g/dl Bedside Hematocrit 40 % Bedside Sodium 133 mEq/L Bedside Potassium 4.7 mEq/L Bedside Chloride 99 mEq/L Bedside Total CO2 15 mEq/l Bedside Blood Urea Nitrogen 29 mg/dl Bedside Creatinine 1.3 mg/dl Bedside Glucose (other) 658 mg/dl Bedside Ionized Calcium (Maira) 1.18 mmol/l Arterial Blood pH 7.24 Arterial Blood Partial Pressure CO2 29 mmHg Arterial Blood Partial Pressure O2 112 mm/Hg Arterial Blood HCO3 12 mmol/L Arterial Blood Oxygen Saturation 97.6 % Arterial Blood Base Excess -13.6 mEq/L Arterial Blood Gas Delivery ROOM AIR Jasen Test POS Test 09/10/17 01:29 09/10/17 02:27 09/10/17 02:55 09/10/17 03:32 Bedside Glucose 492 mg/dl 382 mg/dl 327 mg/dl Urine Color YELLOW Urine Appearance CLEAR Urine pH 5.0 Urine Specific [place] 1.027 Urine Protein NEG Urine Glucose (UA) 3+ Urine Ketones 3+ Urine Occult Blood TRACE Urine Nitrite NEG Urine Bilirubin NEG Urine Urobilinogen NEG Urine Leukocyte Esterase NEG Urine WBC (Auto) 0 /hpf Urine RBC (Auto) 0-4 /hpf Urine Hyaline Casts (Auto) 0 /lpf Urine Epithelial Cells (Auto) 0-5 /lpf Urine Bacteria (Auto) NEG Test 09/10/17 04:06 09/10/17 04:26 09/10/17 05:27 09/10/17 06:26 Prothrombin Time 9.6 SECONDS Prothromb Time International Ratio 0.9 Venous Blood pH 7.20 Sodium Level 140 mmol/L Potassium Level 4.2 mmol/L Chloride Level 108 mmol/L Carbon Dioxide Level 16 mmol/L Anion Gap 16.0 mmol/L Blood Urea Nitrogen 26 mg/dl Creatinine 1.49 mg/dl Est Creatinine Clear Calc Drug Dose 63.5 ml/min Estimated GFR () 67.6 Estimated GFR (Non- 58.3 BUN/Creatinine Ratio 17.5 Random Glucose 323 mg/dl Calcium Level 8.6 mg/dl Phosphorus Level 3.1 mg/dl Magnesium Level 2.1 mg/dl Beta-Hydroxybutyric Acid 74.11 mg/dL Bedside Glucose 300 mg/dl 234 mg/dl 190 mg/dl Test 09/10/17 07:26 09/10/17 08:31 09/10/17 09:22 09/10/17 09:38 Bedside Glucose 240 mg/dl 208 mg/dl 198 mg/dl Venous Blood pH 7.32 Sodium Level 144 mmol/L Potassium Level 4.5 mmol/L Chloride Level 113 mmol/L Carbon Dioxide Level 22 mmol/L Anion Gap 9.0 mmol/L Blood Urea Nitrogen 20 mg/dl Creatinine 1.28 mg/dl Est Creatinine Clear Calc Drug Dose 74.2 ml/min Estimated GFR () 81.2 Estimated GFR (Non- 70.0 BUN/Creatinine Ratio 16.0 Random Glucose 198 mg/dl Estimated Average Glucose 240 mg/dl Hemoglobin A1c 10.0 % Calcium Level 8.7 mg/dl Phosphorus Level 2.4 mg/dl Magnesium Level 2.1 mg/dl Test 09/10/17 10:34 09/10/17 11:31 Bedside Glucose 258 mg/dl 243 mg/dl Assessment & Plan IMPRESSION AND PLAN: 1. DKA, TYPE 1 DM LIKELY SECONDARY TO GASTROENTERITIS - placed on Insulin drip this morning, Anion Gap closed - discussed with Pharmacy Glycemic Control will likely transition to patient's own Insulin Pump this afternoon 2. GASTROENTERITIS - stool cultures and C diff pending - start Cipro and Flagyl given patient's diarrhea for 3 days, in the setting of Type 1 DM - IV fluids monitor Microalbuminemia. He has been on lisinopril, continue with that. Hyperlipidemia. He has not been taking any medications for that yet. Gastrointestinal prophylaxis with Maalox and Mylanta as needed. Deep venous thrombosis prophylaxis with Lovenox. Code status. He will be a full code. Disposition pending anticipate d/c home when medically stable Current Inpatient Medications: Current Inpatient Medications Medications (Trade) Dose Ordered Sig/Soha Route Start Time Stop Time Status Last Admin Dose Admin Insulin Aspart (novoLOG ASPART) SLIDING SCALE PCHS SC 09/10/17 09:00 10/10/17 08:59 Miscellaneous Information (Consult Glycemic Management Pharmacy) 1 ea DAILY PRN N/A 09/10/17 03:16 10/10/17 03:15 Enoxaparin Sodium (Lovenox Inj) 40 mg Q24H SC 09/10/17 09:00 10/10/17 08:59 Acetaminophen (Tylenol Tab) 650 mg Q4H PRN PO 09/10/17 02:45 10/10/17 02:44 Ondansetron HCl (Zofran Inj) 4 mg Q6H PRN IV 09/10/17 02:45 10/10/17 02:44 Al Hydrox/Mg Hydrox/Simethicone (Maalox Max Susp) 15 ml Q6H PRN PO 09/10/17 03:00 10/10/17 02:59 Insulin Human Regular 250 units/ Sodium Chloride 252.5 ml @ 0 mls/hr Q24H IV 09/10/17 03:30 10/10/17 03:29 09/10/17 10:48 2.2 MLS/HR Glucose (Glucose 40% Gel) 15-30 GRAMS 15 GRAMS... UD PRN PO 09/10/17 03:45 10/10/17 03:44 Glucose (Glucose Chew Tab) 4-8 Tablets 4 Tabl... UD PRN PO 09/10/17 03:45 10/10/17 03:44 Dextrose (Dextrose 50% 50ML Syringe) 25-50ML OF 50% DW IV FOR... UD PRN IV 09/10/17 03:45 10/10/17 03:44 Glucagon (Glucagon Inj) 1 mg UD PRN SQ 09/10/17 03:45 10/10/17 03:44 Potassium Chloride/Dextrose/ Sod Cl 1,000 ml @ 125 mls/hr Q8H IV 09/10/17 06:00 10/10/17 05:59 09/10/17 06:29 125 MLS/HR Clonidine HCl (Catapres Tab) 0.1 mg Q6H PRN PO 09/10/17 07:30 10/10/17 07:29 Lisinopril (Zestril Tab) 20 mg ONE PO 09/10/17 11:30 10/10/17 11:29 UNV Lisinopril (Zestril Tab) 20 mg QAM PO 09/11/17 09:00 10/11/17 08:59 UNV
[2017-09-10] MEDS ORDERED: METRONIDAZOLE 500 MG TAB PO SCH (12:00)
[2017-09-10] MEDS ORDERED: LISINOPRIL 20 MG TAB PO ONE (12:45)
[2017-09-10 13:04] LABS: CALCIUM 8.7 mg/dl (8.5-10.1); CREATININE 1.18 mg/dl (0.60-1.40); POTASSIUM 4.1 mmol/L (3.5-5.1)
[2017-09-10 13:06] LABS: PHOSPHORUS 1.9 mg/dl (2.5-4.9)
[2017-09-10] MEDS ORDERED: INSULIN ASPART 100 UNITS/ML VIAL SC PRN (13:30)
--- NOTE | 2017-09-10 13:33 | Pharmacy Progress Note ---
Glycemic Control Intl Consult Date of Service Sep 10, 2017. Scope Glycemic Pharmacist consulted by Dr Scott on 09/10/17 for glycemic control and to write orders per [facility] inpatient glycemic control protocol. Objective Weight (Kilograms): 67.700 Accuchecks BSG (last 24hrs): Test 09/09/17 23:17 09/10/17 01:29 09/10/17 02:27 09/10/17 03:32 Random Glucose 638 mg/dl (70-99) Bedside Glucose 492 mg/dl (70-99) 382 mg/dl (70-99) 327 mg/dl (70-99) Test 09/10/17 04:06 09/10/17 04:26 09/10/17 05:27 09/10/17 06:26 Random Glucose 323 mg/dl (70-99) Bedside Glucose 300 mg/dl (70-99) 234 mg/dl (70-99) 190 mg/dl (70-99) Test 09/10/17 07:26 09/10/17 08:31 09/10/17 09:22 09/10/17 09:38 Bedside Glucose 240 mg/dl (70-99) 208 mg/dl (70-99) 198 mg/dl (70-99) Random Glucose 198 mg/dl (70-99) Test 09/10/17 10:34 09/10/17 11:31 09/10/17 12:23 09/10/17 12:31 Bedside Glucose 258 mg/dl (70-99) 243 mg/dl (70-99) 206 mg/dl (70-99) Random Glucose 227 mg/dl (70-99) Laboratory Data (last 24hrs) Test 09/09/17 23:17 09/09/17 23:29 09/10/17 04:06 09/10/17 09:22 Anion Gap 20.0 mmol/L 25.0 mmol/L 16.0 mmol/L 9.0 mmol/L BUN/Creatinine Ratio 16.3 17.5 16.0 Blood Urea Nitrogen 28 mg/dl 26 mg/dl 20 mg/dl Creatinine 1.70 mg/dl 1.49 mg/dl 1.28 mg/dl Potassium Level 4.6 mmol/L 4.2 mmol/L 4.5 mmol/L Sodium Level 131 mmol/L 140 mmol/L 144 mmol/L White Blood Count 18.55 K/uL Red Blood Count 4.28 M/uL Hemoglobin 13.8 g/dL Hematocrit 38.4 % Mean Corpuscular Volume 89.7 fL Mean Corpuscular Hemoglobin 32.2 pg Mean Corpuscular Hemoglobin Concent 35.9 g/dl Platelet Count 330 K/uL Mean Platelet Volume 10.2 fL Neutrophils (%) (Auto) 86.9 % Lymphocytes (%) (Auto) 7.5 % Monocytes (%) (Auto) 4.8 % Eosinophils (%) (Auto) 0.2 % Basophils (%) (Auto) 0.2 % Neutrophils # (Auto) 16.11 K/uL Lymphocytes # (Auto) 1.40 K/uL Monocytes # (Auto) 0.89 K/uL Eosinophils # (Auto) 0.04 K/uL Basophils # (Auto) 0.03 K/uL Hemoglobin A1c 10.0 % Test 09/10/17 12:23 Anion Gap 7.0 mmol/L BUN/Creatinine Ratio 14.8 Blood Urea Nitrogen 18 mg/dl Creatinine 1.18 mg/dl Potassium Level 4.1 mmol/L Sodium Level 141 mmol/L HbA1c Test 09/10/17 09:22 Hemoglobin A1c 10.0 % (4.5-5.6) H Recent Pertinent Medications Outpatient Anti-diabetic Regimen: * Novolog insulin pump * A1c = 10% 09/10/17 Risk Factors for Insulin Resistance: * Infection: Cipro/Flagyl for GI indx * IVF: D5NS + 20KCl @ 125mL/hr * Diet: Type 1 diabetic diet Assessment & Plan ASSESSMENT: * Mr Bennett is a 41yo Type 1 diabetic male who uses a Novolog insulin pump at home. * He was admitted with N/V/D in DKA (BSG >600mg/dL, AG 20, CO2 15, pH 7.24, BHA 80.65). Patient was initiated on insulin infusion on admission. * Labs have resolved today, so patient will be transitioned back to his insulin pump this afternoon. * Patient may resume home settings w/ an overlap with insulin infusion for a couple of hours. PLAN FOR INPATIENT GLYCEMIC CONTROL: * Continue IV infusion for ~2-3 hr after resuming insulin pump * Insulin pump protocol to be followed by nursing DISCHARGE PLANNING: * Patient's current A1c does NOT indicate adequate glycemic management. * Pump settings are not generally altered during admission, but would advise patient to f/u with PCP/baster hand [facility] upon discharge to work on maximizing his outpatient glycemic control. * Please note that the plan above was derived based on current level of insulin resistance and hospital stress. These recommendations are appropriate for inpatient admission only. Plan of care upon discharge will need to be reassessed to avoid potential outpatient hypo/hyperglycemia. Thank you.
[2017-09-10] MEDS: CIPROFLOXACIN 500 MG TAB PO SCH ×2 (13:34→23:54)
[2017-09-10] MEDS: CLONIDINE HCL 0.1 MG TAB PO PRN (13:36)
[2017-09-10] MEDS: SODIUM CHLORIDE 0.9% 1000ML 1,000 ML IV SCH (14:20)
[2017-09-10 17:30] LABS: CALCIUM 8.8 mg/dl (8.5-10.1); CREATININE 1.19 mg/dl (0.60-1.40); PHOSPHORUS 1.6 mg/dl (2.5-4.9)
[2017-09-10] MEDS: NovoLOG INSULIN PUMP SCH ×2 (17:30→21:00)
[2017-09-10] MEDS ORDERED: POTASSIUM PHOS 3 MMOL/1 ML INFUSION IV STA (19:15)
[2017-09-10] MEDS ORDERED: POTASSIUM PHOSPHATE INJ 21 MMOL in SODIUM CHLORIDE 0.9% 500ML 500 ML IV ONE (19:30)
[2017-09-11] VITALS (12 sets, daily range): BP systolic 143–189; BP diastolic 77–98; PULSE 67–103; TEMP 36.6–37.3; O2SAT 95–99
[2017-09-11] MEDS: SODIUM CHLORIDE 0.9% 1000ML 1,000 ML IV SCH ×2 (00:01→09:52)
[2017-09-11] MEDS ORDERED: NURSING VERBAL MED ORDER ONE (00:30)
[2017-09-11] MEDS: NovoLOG INSULIN PUMP SCH ×4 (08:32→20:55)
[2017-09-11] MEDS: LISINOPRIL 20 MG TAB PO SCH (08:33)
[2017-09-11] MEDS: ENOXAPARIN 40 MG/0.4 ML SYR SC SCH (08:34)
[2017-09-11] MEDS ORDERED: NovoLOG INSULIN PUMP SCH (14:00)
[2017-09-11] MEDS: CIPROFLOXACIN 500 MG TAB PO SCH (16:16)
[2017-09-11] MEDS: CLONIDINE HCL 0.1 MG TAB PO PRN ×2 (16:17→22:41)
--- NOTE | 2017-09-11 20:25 | Progress Note ---
Medicine Progress Note Date & Time of Visit: Sep 11, 2017 at 20:21. Subjective seen sitting up in bed, comfortable states he feels better than yesterday no diarrhea today, no abdominal pain/nausea no headache, dizziness, chest pain denies other symptoms Objective Last 8 Hrs Date Time Temp Pulse Resp B/P (MAP) Pulse Ox O2 Delivery O2 Flow Rate FiO2 09/11/17 20:12 36.7 67 18 161/84 (109) 99 Room Air 09/11/17 20:00 95 Room Air 09/11/17 17:58 78 16 153/81 (105) 09/11/17 16:00 95 Room Air 09/11/17 16:00 95 Room Air 09/11/17 15:31 37.3 81 18 169/94 (119) 99 Room Air Physical Exam: General- oriented x 3, not in distress, speaks in sentences with no effort Eyes- anicteric Neck- no JVD Lungs- clear BS bilaterally, no rales/wheezes Heart- regular rhythm; no murmur, normal rate Abdomen- normal bowel sounds, nondistended, soft, nontender Extremities- no pretibial edema, no calf tenderness Neuro- alert, oriented x 3; no gross focal deficits Skin- warm & dry Laboratory Results: Last 24 Hours Test 09/10/17 20:37 09/10/17 23:58 09/11/17 01:38 09/11/17 07:47 Bedside Glucose 132 mg/dl 304 mg/dl Venous Blood pH 7.34 Phosphorus Level 3.3 mg/dl Test 09/11/17 11:32 09/11/17 14:15 09/11/17 16:27 Bedside Glucose 237 mg/dl 250 mg/dl 164 mg/dl Assessment & Plan IMPRESSION AND PLAN: 1. DKA, TYPE 1 DM LIKELY SECONDARY TO GASTROENTERITIS - placed on Insulin drip, DKA resolved transitioned to Insulin pump 2. GASTROENTERITIS - stool cultures and C diff negative - d/c antibiotics monitor 3. Hypertension - asymptomatic d/c fluids continue Lisinopril PRN Clonidine monitor Microalbuminemia. He has been on lisinopril, continue with that. Hyperlipidemia. He has not been taking any medications for that yet. Gastrointestinal prophylaxis with Maalox and Mylanta as needed. Deep venous thrombosis prophylaxis with Lovenox. Code status. He will be a full code. Disposition pending anticipate d/c home tomorrow Current Inpatient Medications: Current Inpatient Medications Medications (Trade) Dose Ordered Sig/Soha Route Start Time Stop Time Status Last Admin Dose Admin Miscellaneous Information (Consult Glycemic Management Pharmacy) 1 ea DAILY PRN N/A 09/10/17 03:16 10/10/17 03:15 Enoxaparin Sodium (Lovenox Inj) 40 mg Q24H SC 09/10/17 09:00 10/10/17 08:59 09/11/17 08:34 40 MG Acetaminophen (Tylenol Tab) 650 mg Q4H PRN PO 09/10/17 02:45 10/10/17 02:44 Ondansetron HCl (Zofran Inj) 4 mg Q6H PRN IV 09/10/17 02:45 10/10/17 02:44 Al Hydrox/Mg Hydrox/Simethicone (Maalox Max Susp) 15 ml Q6H PRN PO 09/10/17 03:00 10/10/17 02:59 Glucose (Glucose 40% Gel) 15-30 GRAMS 15 GRAMS... UD PRN PO 09/10/17 03:45 10/10/17 03:44 Glucose (Glucose Chew Tab) 4-8 Tablets 4 Tabl... UD PRN PO 09/10/17 03:45 10/10/17 03:44 Dextrose (Dextrose 50% 50ML Syringe) 25-50ML OF 50% DW IV FOR... UD PRN IV 09/10/17 03:45 10/10/17 03:44 Glucagon (Glucagon Inj) 1 mg UD PRN SQ 09/10/17 03:45 10/10/17 03:44 Clonidine HCl (Catapres Tab) 0.1 mg Q6H PRN PO 09/10/17 07:30 10/10/17 07:29 09/11/17 16:17 0.1 MG Lisinopril (Zestril Tab) 20 mg QAM PO 09/11/17 09:00 10/11/17 08:59 09/11/17 08:33 20 MG Ciprofloxacin (Cipro Tab) 500 mg Q12H PO 09/10/17 12:00 09/20/17 11:59 09/11/17 16:16 500 MG Insulin Aspart (novoLOG INSULIN PUMP) 1 ea ACHS N/A 09/10/17 16:30 10/10/17 16:29 09/11/17 16:30 1 EA Insulin Aspart (novoLOG ASPART) SLIDING SCALE PRN PRN SC 09/10/17 13:30 10/10/17 13:29 Insulin Aspart (novoLOG INSULIN PUMP) 1 ea 0000,0400 N/A 09/12/17 00:00 09/12/17 04:01 Miscellaneous Information (Pending Order) 1 ea Q2H N/A 09/11/17 15:45 10/11/17 15:44
[2017-09-12] VITALS (9 sets, daily range): BP systolic 145–193; BP diastolic 77–106; PULSE 63–97; TEMP 36.1–36.9; O2SAT 93–99
[2017-09-12] MEDS: NovoLOG INSULIN PUMP SCH ×6 (00:29→20:44)
[2017-09-12 06:36] LABS: CALCIUM 8.6 mg/dl (8.5-10.1); CREATININE 0.89 mg/dl (0.60-1.40); PHOSPHORUS 3.2 mg/dl (2.5-4.9); POTASSIUM 3.5 mmol/L (3.5-5.1)
[2017-09-12] MEDS: LISINOPRIL 20 MG TAB PO SCH (09:00)
[2017-09-12] MEDS: ENOXAPARIN 40 MG/0.4 ML SYR SC SCH (09:01)
[2017-09-12] MEDS ORDERED: MAGNESIUM SULFATE 1GM / D5W 1 GM in PREMIXED IN D5W 100 ML IV SCH (09:30)
--- NOTE | 2017-09-12 11:09 | Pharmacy Progress Note ---
Pharmacy Glycemic Short Note 2 Date of Service Sep 12, 2017. OUTPATIENT ANTIDIABETIC REGIMEN: * Novolog insulin pump (~ 30 units per day) * Basal rate: 0.8 u/hr from 00-, 0.75 u/hr from -, 0.8 u/hr from - * Bolus 1 units for every 8.5 grams of CHO, CF 40 * A1c = 10% 09/10/17 ASSESSMENT: * Mr Bennett is a 41yo Type 1 diabetic male who uses a Novolog insulin pump at home. * He was admitted with DKA secondary to gastroenteritis on 09/09 - IV insulin infusion was initiated. Patient transitioned back to Novolog pump with good control initially, however BSGs became elevated yesterday. * BSGs over the past 24 hours: 304 (fasting), 237, 164, 320, 234, 185 (fasting) * Of note, BSG of 304 was taken shortly after patient drank a can of soda. Patient reports snacking between BSG checks. * Yesterday patient was ordered to check BSG q4h (rather than ACHS) and bolus from pump accordingly to get back on track * Fasting BSG improved today but remains above goal (Mr. Bennett reports fasting BSG at home is 150 -200) * Plan is for patient to be discharged today on pump - f/u with Endocrinology [facility] is needed to adjust pump settings PLAN FOR INPATIENT GLYCEMIC CONTROL: * Novolog insulin pump per home settings * Additional BSG checks with bolus doses from pump as needed * Insulin pump protocol to be followed by nursing DISCHARGE PLANNING: * Patient's current A1c does NOT indicate adequate glycemic management. * Pump settings are not generally altered during admission, but would advise patient to f/u with PCP/roll repairer [facility] upon discharge to work on maximizing his outpatient glycemic control. Thank you.
[2017-09-12] MEDS: CLONIDINE HCL 0.1 MG TAB PO PRN (15:40)
[2017-09-12] MEDS ORDERED: LISINOPRIL 20 MG TAB PO STA (17:13)
--- NOTE | 2017-09-12 19:29 | Progress Note ---
Medicine Progress Note Date & Time of Visit: Sep 12, 2017 at 19:27. Subjective seen sitting up in bed friends at bedside states he feels better overall denies headache, chest pain, dyspnea no other symptoms BP elevated syst 190s Objective Last 8 Hrs Date Time Temp Pulse Resp B/P (MAP) Pulse Ox O2 Delivery O2 Flow Rate FiO2 09/12/17 17:02 180/91 (120) 09/12/17 16:00 Room Air 09/12/17 15:26 36.9 82 18 193/101 (131) 99 192/106 (134) 09/12/17 12:06 36.6 68 20 178/90 (119) 99 Room Air 09/12/17 12:00 Room Air Physical Exam: General- oriented x 3, not in distress, speaks in sentences with no effort Eyes- anicteric Neck- no JVD Lungs- clear breath sounds bilaterally, no rales/wheezes Heart- regular rhythm; no murmur, normal rate Abdomen- normal bowel sounds, nondistended, soft, nontender Extremities- no pretibial edema, no calf tenderness Neuro- alert, oriented x 3; no gross focal deficits Skin- warm & dry Laboratory Results: Last 24 Hours Test 09/11/17 20:28 09/12/17 00:02 09/12/17 04:13 09/12/17 05:45 Bedside Glucose 320 mg/dl 234 mg/dl 185 mg/dl Sodium Level 139 mmol/L Potassium Level 3.5 mmol/L Chloride Level 105 mmol/L Carbon Dioxide Level 26 mmol/L Anion Gap 8.0 mmol/L Blood Urea Nitrogen 12 mg/dl Creatinine 0.89 mg/dl Est Creatinine Clear Calc Drug Dose 113.2 ml/min Estimated GFR () 124.8 Estimated GFR (Non- 107.7 BUN/Creatinine Ratio 13.6 Random Glucose 184 mg/dl Calcium Level 8.6 mg/dl Phosphorus Level 3.2 mg/dl Magnesium Level 1.6 mg/dl Test 09/12/17 05:47 09/12/17 07:36 09/12/17 11:36 09/12/17 16:46 Venous Blood pH 7.39 Bedside Glucose 176 mg/dl 211 mg/dl 230 mg/dl Assessment & Plan IMPRESSION AND PLAN: 1. DKA, TYPE 1 DM LIKELY SECONDARY TO GASTROENTERITIS - placed on Insulin drip, DKA resolved transitioned to Insulin pump, BSGs good 2. GASTROENTERITIS - stool cultures and C diff negative - d/c antibiotics monitor - resolved 3. Hypertension - asymptomatic d/c fluids - increase Lisinopril to 40mg daily PRN Clonidine monitor Microalbuminemia. He has been on lisinopril, continue with that. Hyperlipidemia. He has not been taking any medications for that yet. Gastrointestinal prophylaxis with Maalox and Mylanta as needed. Deep venous thrombosis prophylaxis with Lovenox. Code status. He will be a full code. Disposition pending anticipate d/c home tomorrow Current Inpatient Medications: Current Inpatient Medications Medications (Trade) Dose Ordered Sig/Soha Route Start Time Stop Time Status Last Admin Dose Admin Miscellaneous Information (Consult Glycemic Management Pharmacy) 1 ea DAILY PRN N/A 09/10/17 03:16 10/10/17 03:15 Enoxaparin Sodium (Lovenox Inj) 40 mg Q24H SC 09/10/17 09:00 10/10/17 08:59 09/12/17 09:01 40 MG Acetaminophen (Tylenol Tab) 650 mg Q4H PRN PO 09/10/17 02:45 10/10/17 02:44 Ondansetron HCl (Zofran Inj) 4 mg Q6H PRN IV 09/10/17 02:45 10/10/17 02:44 Al Hydrox/Mg Hydrox/Simethicone (Maalox Max Susp) 15 ml Q6H PRN PO 09/10/17 03:00 10/10/17 02:59 Glucose (Glucose 40% Gel) 15-30 GRAMS 15 GRAMS... UD PRN PO 09/10/17 03:45 10/10/17 03:44 Glucose (Glucose Chew Tab) 4-8 Tablets 4 Tabl... UD PRN PO 09/10/17 03:45 10/10/17 03:44 Dextrose (Dextrose 50% 50ML Syringe) 25-50ML OF 50% DW IV FOR... UD PRN IV 09/10/17 03:45 10/10/17 03:44 Glucagon (Glucagon Inj) 1 mg UD PRN SQ 09/10/17 03:45 10/10/17 03:44 Clonidine HCl (Catapres Tab) 0.1 mg Q6H PRN PO 09/10/17 07:30 10/10/17 07:29 09/12/17 15:40 0.1 MG Insulin Aspart (novoLOG INSULIN PUMP) 1 ea ACHS N/A 09/10/17 16:30 10/10/17 16:29 09/12/17 17:57 1 EA Insulin Aspart (novoLOG ASPART) SLIDING SCALE PRN PRN SC 09/10/17 13:30 10/10/17 13:29 Miscellaneous Information (Pending Order) 1 ea Q2H N/A 09/11/17 15:45 10/11/17 15:44 Lisinopril (Zestril Tab) 40 mg QAM PO 09/13/17 09:00 10/11/17 08:59
[2017-09-13 06:49] LABS: CALCIUM 8.7 mg/dl (8.5-10.1); CREATININE 0.96 mg/dl (0.60-1.40); PHOSPHORUS 2.7 mg/dl (2.5-4.9); POTASSIUM 4.6 mmol/L (3.5-5.1)
[2017-09-13] MEDS: NovoLOG INSULIN PUMP SCH ×3 (07:15→16:59)
[2017-09-13 07:17] VITALS: BP 159/81; PULSE 77; TEMP 36.6; O2SAT 100
[2017-09-13] MEDS: MAGNESIUM SULFATE 1GM / D5W 1 GM in PREMIXED IN D5W 100 ML IV SCH ×2 (08:38→09:45)
[2017-09-13] MEDS: ENOXAPARIN 40 MG/0.4 ML SYR SC SCH (08:39)
[2017-09-13] MEDS ORDERED: LISINOPRIL 40 MG TAB PO SCH (09:00)
[2017-09-13] MEDS ORDERED: INSULIN HUMAN REGULAR PER UNIT 6 UNITS in SYRINGE 5.94 ML IV ONE (09:45)
[2017-09-13 10:58] LABS: CALCIUM 8.7 mg/dl (8.5-10.1); CREATININE 1.09 mg/dl (0.60-1.40); POTASSIUM 3.9 mmol/L (3.5-5.1)
--- NOTE | 2017-09-13 13:50 | Pharmacy Progress Note ---
Pharmacy Glycemic Short Note 2 Date of Service Sep 13, 2017. OUTPATIENT ANTIDIABETIC REGIMEN: * Novolog insulin pump (~ 30 units per day) * Basal rate: 0.8 u/hr from 00-, 0.75 u/hr from -, 0.8 u/hr from - * Bolus 1 units for every 8.5 grams of CHO, CF 40 * A1c = 10% 09/10/17 ASSESSMENT: * Mr Bennett is a 41yo Type 1 diabetic male who uses a Novolog insulin pump at home. * He was admitted with DKA secondary to gastroenteritis on 09/09 - IV insulin infusion was initiated. Patient transitioned back to Novolog pump with good control initially, however BSGs became elevated yesterday. * Discharge was planned for 09/12, however patient was kept another day due to hypertension. * BSGs over the past 24 hours: 176 (fasting), 211, 230, 244, 234, 324 (fasting) * After BSG of 324 mg/dL, patient was instructed to bolus 7 units from pump in addition to CF/CR (total 18.4 units). BSG recheck remained > 300 mg/dL. AM labs indicated positive ketones, elevated anion gap of 13, and bicarb of 20. Provider was contacted at this time to discuss possible initiation of IV insulin infusion. It was decided to give the patient an IV bolus of 6 units and repeat PRP @ 1000. Repeat labs improved- anion gap and bicarb WNL. BSG has decreased to 212 mg/dL. Discharge is still planned for today. PLAN FOR INPATIENT GLYCEMIC CONTROL: * Regular insulin bolus 6 units IV x 1 * Continue Novolog insulin pump per home settings * Additional BSG checks with bolus doses from pump as needed DISCHARGE PLANNING: * Patient's current A1c does NOT indicate adequate glycemic management. * Pump settings are not generally altered during admission, but would advise patient to f/u with PCP/sleep medicine physician [facility] upon discharge to work on maximizing his outpatient glycemic control. * Recommend increasing BSG checks to every 4 hours until patient is able to f/u with Endocrinology. Thank you.
[2017-09-13 15:06] VITALS: BP 178/85; PULSE 77; TEMP 36.8; O2SAT 97
[2017-09-13] MEDS: CLONIDINE HCL 0.1 MG TAB PO PRN (15:09)
[2017-09-13 15:31] LABS: CALCIUM 8.7 mg/dl (8.5-10.1); CREATININE 0.96 mg/dl (0.60-1.40); POTASSIUM 3.9 mmol/L (3.5-5.1)
--- NOTE | 2017-09-13 17:17 | Progress Note ---
Medicine Progress Note Date & Time of Visit: Sep 13, 2017 at 17:11. Subjective patient seen resting in bed, comfortable states he feels good overall BSG elevated this AM but asymptomatic, now controlled BP elevated earlier but asymptomatic, now controlled denies diarrhea no other symptoms states he is ready and would like to be discharged today Objective Last 8 Hrs Date Time Temp Pulse Resp B/P (MAP) Pulse Ox O2 Delivery O2 Flow Rate FiO2 09/13/17 16:00 Room Air 09/13/17 15:06 36.8 77 18 178/85 (116) 97 Room Air Physical Exam: General- oriented x 3, not in distress, speaks in sentences with no effort Eyes- anicteric Neck- no JVD Lungs- clear BS BL Heart- normal rate, regular rhythm; no murmurs Abdomen- normal bowel sounds, nondistended, soft, nontender Extremities- no pretibial edema, no calf tenderness Neuro- alert, oriented x 3; no gross focal deficits Skin- warm & dry Laboratory Results: Last 24 Hours Test 09/12/17 20:40 09/13/17 05:48 09/13/17 05:49 09/13/17 07:12 Bedside Glucose 244 mg/dl 341 mg/dl Sodium Level 133 mmol/L Potassium Level 4.6 mmol/L Chloride Level 100 mmol/L Carbon Dioxide Level 20 mmol/L Anion Gap 13.0 mmol/L Blood Urea Nitrogen 15 mg/dl Creatinine 0.96 mg/dl Est Creatinine Clear Calc Drug Dose 102.6 ml/min Estimated GFR () 114.9 Estimated GFR (Non- 99.2 BUN/Creatinine Ratio 16.1 Random Glucose 396 mg/dl Calcium Level 8.7 mg/dl Phosphorus Level 2.7 mg/dl Magnesium Level 1.7 mg/dl Beta-Hydroxybutyric Acid 67.40 mg/dL Venous Blood pH 7.30 Test 09/13/17 07:39 09/13/17 09:54 09/13/17 10:01 09/13/17 11:38 Bedside Glucose 301 mg/dl 299 mg/dl 212 mg/dl Sodium Level 135 mmol/L Potassium Level 3.9 mmol/L Chloride Level 100 mmol/L Carbon Dioxide Level 27 mmol/L Anion Gap 8.0 mmol/L Blood Urea Nitrogen 15 mg/dl Creatinine 1.09 mg/dl Est Creatinine Clear Calc Drug Dose 90.3 ml/min Estimated GFR () 98.6 Estimated GFR (Non- 85.1 BUN/Creatinine Ratio 13.6 Random Glucose 314 mg/dl Calcium Level 8.7 mg/dl Beta-Hydroxybutyric Acid 6.92 mg/dL Test 09/13/17 13:59 09/13/17 14:42 09/13/17 16:34 Bedside Glucose 223 mg/dl 187 mg/dl Sodium Level 137 mmol/L Potassium Level 3.9 mmol/L Chloride Level 102 mmol/L Carbon Dioxide Level 29 mmol/L Anion Gap 6.0 mmol/L Blood Urea Nitrogen 14 mg/dl Creatinine 0.96 mg/dl Est Creatinine Clear Calc Drug Dose 102.6 ml/min Estimated GFR () 114.9 Estimated GFR (Non- 99.2 BUN/Creatinine Ratio 14.7 Random Glucose 199 mg/dl Calcium Level 8.7 mg/dl Assessment & Plan 1. DKA, TYPE 1 DM LIKELY SECONDARY TO SEVERE, ACUTE VIRAL GASTROENTERITIS - placed on Insulin drip, DKA resolved transitioned to Insulin pumP - during admission, noted to have elevated BSGs in the 300s required additional Insulin - will likely need to have Insulin Pump settings increased - advised patient to check BSGs q4h while waiting for appointment with new DM Specialist/Digital Media Associate c/o [facility] 2. GASTROENTERITIS - stool cultures and C diff negative - discontinued antibiotics - resolved 3. Hypertension - BP not at goal as high as 190s - Lisinopril increased to 40mg po daily will add Amlodipine 5mg po daily - monitor as outpatient Hyperlipidemia - not on medication yet Disposition d/c home ff up with PCP in 3-5 days ff up with Endo this week Current Inpatient Medications: Current Inpatient Medications Medications (Trade) Dose Ordered Sig/Soha Route Start Time Stop Time Status Last Admin Dose Admin Miscellaneous Information (Consult Glycemic Management Pharmacy) 1 ea DAILY PRN N/A 09/10/17 03:16 10/10/17 03:15 Enoxaparin Sodium (Lovenox Inj) 40 mg Q24H SC 09/10/17 09:00 10/10/17 08:59 09/13/17 08:39 40 MG Acetaminophen (Tylenol Tab) 650 mg Q4H PRN PO 09/10/17 02:45 10/10/17 02:44 09/13/17 14:14 650 MG Ondansetron HCl (Zofran Inj) 4 mg Q6H PRN IV 09/10/17 02:45 10/10/17 02:44 Al Hydrox/Mg Hydrox/Simethicone (Maalox Max Susp) 15 ml Q6H PRN PO 09/10/17 03:00 10/10/17 02:59 Glucose (Glucose 40% Gel) 15-30 GRAMS 15 GRAMS... UD PRN PO 09/10/17 03:45 10/10/17 03:44 Glucose (Glucose Chew Tab) 4-8 Tablets 4 Tabl... UD PRN PO 09/10/17 03:45 10/10/17 03:44 Dextrose (Dextrose 50% 50ML Syringe) 25-50ML OF 50% DW IV FOR... UD PRN IV 09/10/17 03:45 10/10/17 03:44 Glucagon (Glucagon Inj) 1 mg UD PRN SQ 09/10/17 03:45 10/10/17 03:44 Clonidine HCl (Catapres Tab) 0.1 mg Q6H PRN PO 09/10/17 07:30 10/10/17 07:29 09/13/17 15:09 0.1 MG Insulin Aspart (novoLOG INSULIN PUMP) 1 ea ACHS N/A 09/10/17 16:30 10/10/17 16:29 09/13/17 16:59 1 EA Insulin Aspart (novoLOG ASPART) SLIDING SCALE PRN PRN SC 09/10/17 13:30 10/10/17 13:29 Lisinopril (Zestril Tab) 40 mg QAM PO 09/13/17 09:00 10/11/17 08:59 09/13/17 08:37 40 MG Insulin Aspart (novoLOG INSULIN PUMP) 1 ea 0000,0400 N/A 09/14/17 00:00 09/14/17 04:01
[2017-09-13] MEDS ORDERED: LSN40 PO (17:19)
[2017-09-13] MEDS ORDERED: ONDA4TAB10 SL (17:19)
[2017-09-13] MEDS ORDERED: NRV5 PO (17:19)
--- NOTE | 2017-09-13 17:23 | Discharge Instructions ---
Discharge Instructions Date of Service Sep 13, 2017. Admission Reason for Admission: DKA Discharge Discharge Diagnosis / Problem: DIABETIC KETOACIDOSIS Discharge Goals Goal(s): Diagnostic testing, Therapeutic intervention Activity Recommendations Activity Limitations: as noted below (NO HEAVY EXERTION UNTIL RE-EVALUATED BY PRIMARY CARE PHYSICIAN) Lifting Limitations: until after follow-up appointment Exercise/Sports Limitations: until after follow-up appointment . Instructions / Follow-Up Instructions / Follow-Up PLEASE REVIEW YOUR NEW MEDICATION LIST AND FOLLOW INSTRUCTIONS CAREFULLY. CHECK YOUR BLOOD GLUCOSE EVERY 4 HOURS AND TITRATE INSULIN ACCORDINGLY. PLEASE CALL PRIMARY CARE PHYSICIAN OR RETURN TO ER IMMEDIATELY IF WITH RECURRENCE OF SYMPTOMS, DIZZINESS, WEAKNESS, FEVER/CHILLS, PERSISTENTLY ELEVATED BLOOD SUGAR READINGS. FOLLOW UP WITH DR. CRISTA HALL IN 3-5 DAYS (CLINIC TO CALL YOU WITH APPOINTMENT). FOLLOW UP WITH YOUR REGIONAL FLATBED TRUCK DRIVER/DIABETIC SPECIALIST THIS WEEK. Current Hospital Diet Patient's current hospital diet: Diabetes Type 1 Diet, AHA Diet (Heart Healthy) Discharge Diet Recommended Diet: AHA Diet (Heart Healthy), Diabetes Type 1 Diet Pending Studies Studies pending at discharge: no Laboratory Results Hemoglobin A1c Test 09/10/17 09:22 Range/Units Estimated Average Glucose 240 mg/dl Hemoglobin A1c 10.0 H 4.5-5.6 % Medical Emergencies . Who to Call and When: Medical Emergencies: If at any time you feel your situation is an emergency, please call 911 immediately. . Non-Emergent Contact Non-Emergency issues call your: Primary Care Provider, Specialist Call Non-Emergent contact if: you have a fever, your pain is not controlled, your pain is worsening, you have any medication questions . . "Provider Documentation" section prepared by Rajendra Jara. . VTE Core Measure Inpt VTE Proph given/why not?: Enoxaparin (Lovenox)SQ
--- NOTE | 2017-09-13 17:27 | Discharge Summary ---
Discharge Summary Date of Service Sep 13, 2017. Discharge Summary Admission Date: Sep 10, 2017 at 02:36 Discharge Date: Sep 13, 2017 Discharge Disposition: Home Principal Diagnosis: DIABETIC KETOACIDOSIS, TYPE 1 DM ,LIKELY SECONDARY TO SEVERE, ACUTE VIRAL GASTROENTERITIS Secondary Diagnoses/Problems: PLEASE REFER TO HOSPITAL COURSE BELOW. Procedures: CHEST ONE VIEW PORTABLE CLINICAL HISTORY: Generalized Weakness dyspnea COMPARISON STUDY: 09/07/2017 FINDINGS: The bones soft tissues and hemidiaphragms are normal. The cardiomediastinal silhouette is normal. The lungs are clear. The pulmonary vasculature is normal. IMPRESSION: Negative chest. Pending Studies/Follow-Up: PLEASE REFER TO HOSPITAL COURSE BELOW. Medication Reconciliation New Medications: Amlodipine Besylate (Amlodipine Besylate) 5 Mg Tab 5 MG PO DAILY for 30 Days, #30 TABS 2 Refills Lisinopril (Lisinopril) 40 Mg Tab 40 MG PO QAM for 30 Days, #30 TAB 2 Refills Changed Medications: Ondasetron Odt (Zofran Odt) 4 Mg Tab 4 MG SL Q6H PRN for nausea for 7 Days (Changed from: Removed Quantity) Continued Medications: Ergocalciferol (Vitamin D 88447 Unit) 50,000 Unit Cap 1 TAB PO WK Insulin Aspart (novoLOG INSULIN PUMP ) 1 Ea Inj 1 EA N/A UD, EA Discontinued Medications: Lisinopril (Lisinopril) 20 Mg Tab 20 MG PO DAILY Admission Information HPI (per Admitting provider): CHIEF COMPLAINT: Nausea, vomiting, diarrhea for the last 3 days with generalized weakness. HISTORY OF PRESENT COMPLAINT: He is a 41-year-old male with significant past medical history of type 1 diabetes mellitus and hyperlipidemia, apparently has been complaining of nausea and vomiting with diarrhea for the last 3 days. He has been unable to keep anything down. He does have abdominal pain associated with it and the diarrhea has been quite a few times and in the ER, he has it 3 times already. He denies having any fever, chills or rigors, any cough or phlegm, any chest pain, shortness of breath. He does not have any swelling of the legs. Denies having any problem with his urine. In the Emergency Room, he was noted to have a high white count to low pH and the blood sugar was elevated to 638. From that point, he was diagnosed with DKA and has been admitted to telemetry unit for continuation of care. Physical Exam (per Admitting): GENERAL: On examination in the Emergency Room, he was not having any acute distress, but his mouth looked very dry. He was having some problem with speech, but no other acute distress. VITAL SIGNS: Temperature 36.8, pulse 117, blood pressure 138/78, saturation 98% on room air. HEENT: Unremarkable. NECK: Supple. No JVD, no bruit. CHEST: Clear to auscultate bilaterally. HEART: S1, S2 with a 2/6 systolic murmur over precordium. ABDOMEN: Soft, tender, generalized. No guarding or rigidity. Bowel sounds present. EXTREMITIES: Negative for any edema. MUSCULOSKELETAL SYSTEM: Did not show any acute arthritis. CENTRAL NERVOUS SYSTEM: He was alert, awake, oriented x3 and no focal sensory and/or motor deficit appreciated. Hospital Course DIABETIC KETOACIDOSIS, TYPE 1 DM LIKELY SECONDARY TO SEVERE, ACUTE VIRAL GASTROENTERITIS - placed on Insulin drip, DKA resolved transitioned to patient's own Insulin pump - during admission, noted to have elevated BSGs in the 300s required additional Insulin - will likely need to have Insulin Pump settings increased - advised patient to check BSGs q4h while waiting for appointment with new DM Specialist/Information Technology Internship c/o [facility] ACUTE VIRAL GASTROENTERITIS - stool cultures and C diff negative - discontinued antibiotics - resolved HYPERTENSION - BP not at goal as high as 190s - Lisinopril increased to 40mg po daily will add Amlodipine 5mg po daily - monitor as outpatient DYSLIPIDEMIA - not on medication yet Disposition d/c home ff up with PCP in 3-5 days ff up with Endo this week Total time spent on discharge = 45 MINUTES This includes examination of the patient, discharge planning, medication reconciliation, and communication with other providers. Discharge Instructions Discharge Instructions Date of Service Sep 13, 2017. Admission Reason for Admission: DKA Discharge Discharge Diagnosis / Problem: DIABETIC KETOACIDOSIS Discharge Goals Goal(s): Diagnostic testing, Therapeutic intervention Activity Recommendations Activity Limitations: as noted below (NO HEAVY EXERTION UNTIL RE-EVALUATED BY PRIMARY CARE PHYSICIAN) Lifting Limitations: until after follow-up appointment Exercise/Sports Limitations: until after follow-up appointment . Instructions / Follow-Up Instructions / Follow-Up PLEASE REVIEW YOUR NEW MEDICATION LIST AND FOLLOW INSTRUCTIONS CAREFULLY. CHECK YOUR BLOOD GLUCOSE EVERY 4 HOURS AND TITRATE INSULIN ACCORDINGLY. PLEASE CALL PRIMARY CARE PHYSICIAN OR RETURN TO ER IMMEDIATELY IF WITH RECURRENCE OF SYMPTOMS, DIZZINESS, WEAKNESS, FEVER/CHILLS, PERSISTENTLY ELEVATED BLOOD SUGAR READINGS. FOLLOW UP WITH DR. CRISTA HALL IN 3-5 DAYS (CLINIC TO CALL YOU WITH APPOINTMENT). FOLLOW UP WITH YOUR OFFSET PRINTING PRESSMEN/DIABETIC SPECIALIST THIS WEEK. Current Hospital Diet Patient's current hospital diet: Diabetes Type 1 Diet, AHA Diet (Heart Healthy) Discharge Diet Recommended Diet: AHA Diet (Heart Healthy), Diabetes Type 1 Diet Pending Studies Studies pending at discharge: no Laboratory Results Hemoglobin A1c Test 09/10/17 09:22 Range/Units Estimated Average Glucose 240 mg/dl Hemoglobin A1c 10.0 H 4.5-5.6 % Medical Emergencies . Who to Call and When: Medical Emergencies: If at any time you feel your situation is an emergency, please call 911 immediately. . Non-Emergent Contact Non-Emergency issues call your: Primary Care Provider, Specialist Call Non-Emergent contact if: you have a fever, your pain is not controlled, your pain is worsening, you have any medication questions . . "Provider Documentation" section prepared by Rajendra Jara. . VTE Core Measure Inpt VTE Proph given/why not?: Enoxaparin (Lovenox)SQ
[2017-09-13 17:37] VITALS: BP 154/89; PULSE 77; TEMP 36.8; O2SAT 97
[2017-09-14] MEDS ORDERED: NovoLOG INSULIN PUMP SCH
--- NOTE | 2017-09-15 16:13 | Progress Note ---
Progress Note Date of Service Sep 15, 2017. Progress Note called scheduling appt for 1 week ff up they will get one and they will call the patient Rashawn HEADLEY MD
== END 2017-09-13 18:21 | disposition home or self-care (01) | DRG 391 ==
LOC: C.EDB 22:24 → C.MED 09-10 02:36 → ENRESERV 09-10 02:41
PROVIDERS: ADMIT Internal Medicine; ATTEND Internal Medicine
DX: A08.4 Viral intestinal infection, unspecified (principal); E10.10 Type 1 diabetes mellitus with ketoacidosis without coma; I10 Essential (primary) hypertension; Z51.81 Encounter for therapeutic drug level monitoring; Z79.899 Other long term (current) drug therapy; Z96.41 Presence of insulin pump (external) (internal); Z96.21 Cochlear implant status; Z87.891 Personal history of nicotine dependence; Z83.3 Family history of diabetes mellitus; Z81.8 Family history of other mental and behavioral disorders; Z82.0 Family history of epilepsy and other diseases of the nervous system